=== PATIENT | female | born 1980 | race Caucasian/White ===

== ENCOUNTER 2019-09-15 04:08 | Emergency (ER) | payer OTHER, MEDICAID, SELFPAY ==
--- NOTE | ~2019-09-15 | XR_ITS ---
EXAMINATION: XR chest 2V 09/15/2019 05:17 INDICATION: Cough with fever PROCEDURE: 2 view chest COMPARISON: No prior studies for comparison. FINDINGS: The lungs are clear. The cardiomediastinal silhouette is within normal limits. There are no pleural effusions. There is no pneumothorax suspected. IMPRESSION: 1: NO ACUTE CARDIOPULMONARY DISEASE. Reviewed, dictated and finalized at location [facility]. [facility]
[2019-09-15 04:17] VITALS: BP 111/73; PULSE 121; RESP 12; TEMP 36; O2SAT 97
--- NOTE | 2019-09-15 04:37 | ED.ABDPAIN ---
HPI - Abdominal Pain General Chief Complaint: Urogenital-Female Stated Complaint: UTI Time Seen by Provider: 09/15/19 04:15 History of Present Illness HPI narrative: Dark urine and dysuria for the past 2 days. Associated with subjective fever and right flank pain. She reports that she has also had a cough and wheezing. Related Data Allergies Allergy/AdvReac Type Severity Reaction Status Date / Time vancomycin Allergy Intermediate Rash Verified 05/20/19 21:55 Review of Systems Review of Systems: All systems reviewed & are unremarkable except as noted in HPI and below Constitutional: Constitutional: Reports fatigue and Reports fever(s) Eyes: Eyes: Denies change in vision ENT: Denies sore throat Cardiovascular: Cardiovascular: Denies chest pain Respiratory: Respiratory: Reports wheezing Gastrointestinal: Gastrointestinal: Reports abdominal pain, Denies nausea and Denies vomiting Genitourinary: Genitourinary: Denies hematuria, Reports nocturia and Reports dysuria Musculoskeletal: Musculoskeletal: Reports back pain and Reports myalgias Neurologic: Denies weakness [facility] Social History Social History (Updated 09/15/19 @ 04:56 by Albaro Zacarias MD) Smoking status: Current every day smoker Exam Const: General: no acute distress and alert Nutritional Appearance: obese Orientation/consciousness: patient oriented x3 HENMT: Head: normal to inspection Eyes: Pupils: Equal, round and reactive pupils present Resp: Effort & Inspection: normal respiratory effort Auscultation: wheezes Cardio: Rate: regular rate Rhythm: regular rhythm GI: GI Palp: Yes Soft to palpation and No Tenderness to palpation present (GI) Back/Spine/Pelvis: Back: CVA tenderness (right) Neuro: General: patient oriented x3 and moves all extremities Speech: normal speech Extrem: General: normal to inspection Course Vital Signs Vital signs: Vital Signs Temperature 36.0 C L 09/15/19 04:17 Pulse Rate 121 H 09/15/19 04:17 Respiratory Rate 12 09/15/19 04:17 Blood Pressure 111/73 09/15/19 04:17 Pulse Oximetry 97 09/15/19 04:17 Temperature 36.0 C L 09/15/19 04:17 Pulse Rate 96 09/15/19 05:00 Respiratory Rate 20 09/15/19 05:00 Blood Pressure 111/73 09/15/19 04:17 Pulse Oximetry 97 09/15/19 04:17 MDM - Abdominal Pain Differential Diagnosis Differential diagnosis: Likely constipation and other (UTI, influenza) Medical Records Attestation: I reviewed the patient's medical records. Lab Data Attestation: I reviewed the patient's lab results. Result diagrams: 09/15/19 04:33 09/15/19 04:33 Labs: Lab Results 09/15/19 09/15/19 09/15/19 Range/Units 04:33 04:33 04:50 WBC 8.4 (4.5-10.0) K/mm3 RBC 4.26 (4.2-5.4) M/mm3 Hgb 12.9 (12.0-15.0) g/dL Hct 39.6 (37.0-47.0) % MCV 93.0 (80-100) fl MCH 30.3 (26-34) pg MCHC 32.6 (32-36) g/dl RDW 12.7 (11.5-14.5) % Plt Count 228 (150-375) k/mm3 MPV 10.1 (7.4-10.4) fl Immature Gran % (Auto) 0.4 (0-0.5) % Neut % (Auto) 59.3 (45.5-73.1) % Lymph % (Auto) 29.0 (18.3-44.2) % Taylor % (Auto) 6.7 (2.6-8.5) % Eos % (Auto) 4.0 (0-4.4) % Baso % (Auto) 0.6 (0.2-1.2) % Lymph # (Auto) 2.44 (0.9-3.2) K/mm3 Taylor # (Auto) 0.6 (0.1-0.6) K/mm3 Eos # (Auto) 0.3 (0-0.3) K/mm3 Baso # (Auto) 0.1 (0.0-0.1) K/mm3 Abs Immat Gran (auto) 0.03 (0.00-0.031) K/mm3 Absolute Neuts (auto) 5.0 (1.3-6.7) K/mm3 Absolute Nucleated RBC 0.0 (0.0-0.012) K/mm3 Nucleated RBC % 0.0 (0.0-0.2) % Sodium 135 L (137-145) mmol/L Potassium 3.0 L (3.4-5.0) mmol/L Chloride 100 (98-107) mmol/L Carbon Dioxide 24 (22-30) mmol/L BUN 8 (7-17) mg/dL Creatinine 0.90 (0.7-1.0) mg/dL Estim Creat Clear Calc Not Reportable Estimated GFR > 60 (59 - ) Glucose 137 H (65-105) mg/dL Calcium 8.6 (8.4-10.2) mg/dL Urine Color
[2019-09-15 04:50] VITALS: PULSE 98; RESP 20
[2019-09-15 04:51] LABS: Basophils Absolute Auto 0.1 K/mm3 (0.0-0.1); Basophils Percent Auto 0.6 % (0.2-1.2); Eosinophils Absolute Auto 0.3 K/mm3 (0-0.3); Hematocrit 39.6 % (37.0-47.0); Hemoglobin 12.9 g/dL (12.0-15.0); Immature Granulocyte Absolute 0.03 K/mm3 (0.00-0.031); Immature Granulocyte Percent A 0.4 % (0-0.5); Lymphocytes Absolute Auto 2.44 K/mm3 (0.9-3.2); Mean Corpuscular HGB Conc 32.6 g/dl (32-36); Mean Corpuscular Hemoglobin 30.3 pg (26-34); Mean Platelet Volume 10.1 fl (7.4-10.4); Monocytes Absolute Auto 0.6 K/mm3 (0.1-0.6); Monocytes Percent Auto 6.7 % (2.6-8.5); Neutrophils Percent Auto 59.3 % (45.5-73.1); Platelet Count Result 228 k/mm3 (150-375); Red Blood Count 4.26 M/mm3 (4.2-5.4); Red Cell Distribution Width 12.7 % (11.5-14.5); White Blood Count 8.4 K/mm3 (4.5-10.0)
[2019-09-15] MEDS: IPRATROPIUM BR 0.02% INH SOLN 0.5 MG/2.5 ML VIAL INHALATION (04:52)
[2019-09-15] MEDS: ALBUTEROL SULFATE NEB 2.5 MG/0.5 ML INH 5 MG INHALATION (04:52)
[2019-09-15 05:00] VITALS: PULSE 96; RESP 20
[2019-09-15 05:04] LABS: Blood Urea Nitrogen 8 mg/dL (7-17); Calcium 8.6 mg/dL (8.4-10.2); Carbon Dioxide 24 mmol/L (22-30); Chloride 100 mmol/L (98-107); Estimated Glomerular Filt Rate > 60; Glucose 137 mg/dL (65-105); Sodium 135 mmol/L (137-145)
[2019-09-15 05:12] LABS: Add Urine Microscopic? YES; Appearance Urine Cloudy (Clear); Bacteria Urine 2+ /hpf; Bilirubin Urine Negative (Negative); Blood Urine Negative (Negative); Color Urine Yellow (Yellow); Glucose Urine UA Negative (Negative); Ketones Urine Negative (Negative); Leukocyte Esterase Ur Negative LEU/UL (Negative); Mucus Urine Heavy /lpf; Nitrate Urine Negative (Negative); Protein Urine Negative (Negative); RBC Urine 0-2 /hpf (0-2); Squamous Epithelial Cell Urine Many /hpf (Few)
--- NOTE | 2019-09-15 05:43 | PC.NURSE ---
pt requesting pain and nausea medication. EDP notified no further orders at this time.
[2019-09-15] MEDS: ACETAMINOPHEN 500 MG TABLET 1000 MG PO (05:55)
[2019-09-15] MEDS: NITROFURANTOIN MONOHYD MACROCR 100 MG CAP PO (05:56)
[2019-09-15 06:08] VITALS: BP 122/78; PULSE 88; RESP 19; O2SAT 97
[2019-09-15] MEDS: PHENAZOPYRIDINE HCL 100 MG TABLET 200 MG PO (06:08)
== END 2019-09-15 06:08 | disposition home or self-care (01) ==
PROVIDERS: Emergency Provider Emergency Medicine; PCP Family Medicine
DX: N30.00 Acute cystitis without hematuria (principal); F17.290 Nicotine dependence, other tobacco product, uncomplicated
CPT/HCPCS: 36415; 71046; 80048; 81001; 81025; 85025; 87804; 94640; 99283; A9270

== ENCOUNTER 2019-11-25 20:58 | Emergency (ER) | payer OTHER, MEDICAID, SELFPAY ==
[2019-11-25 20:59] VITALS: BP 145/100; PULSE 105; RESP 20; TEMP 36.5; O2SAT 100
[2019-11-25 21:05] VITALS: BP 132/98; PULSE 78; RESP 18; TEMP 37.1; O2SAT 99
[2019-11-25] MEDS: KETOROLAC 10 MG TABLET PO (22:08)
[2019-11-25] MEDS: CEPHALEXIN 500 MG CAPSULE PO (22:08)
--- NOTE | 2019-11-25 22:08 | ED.WOUNDLAC ---
HPI - Wound/Laceration General Chief Complaint: Wound/Laceration Stated Complaint: ABCESS Time Seen by Provider: 11/25/19 21:55 Source: patient Mode of arrival: ambulatory History of Present Illness HPI narrative: 39 yo female who presents for evaluation of painful wounds to bilateral underarms. Patient reports she has had red bump in her right axilla x 1 week. She states it is painful and it is not getting better. She denies drainage. she has been applying hot compresses without relief. She reports taking motrin with minimal pain relief. Onset (ago): week(s) Place: home Related Data Allergies Allergy/AdvReac Type Severity Reaction Status Date / Time vancomycin Allergy Intermediate Rash Verified 11/25/19 21:10 Review of Systems Review of Systems: All systems reviewed & are unremarkable except as noted in HPI and below Constitutional: Constitutional: Denies chills and Denies fever(s) Integumentary/Breasts: Skin/Breast: Reports erythema PMFSH Past Medical History Medical History (Updated 11/26/19 @ 00:00 by Pauline Soriano) Anxiety Depression Hypothyroid Surgical History Surgical History (Updated 11/25/19 @ 22:09 by Aliya Chirinos MD) H/O: hysterectomy History of cholecystectomy Social History Social History (Updated 11/25/19 @ 22:10 by Aliya Chirinos MD) Smoking status: Current every day smoker Alcohol intake: never Exam Const: General: no acute distress and alert Orientation/consciousness: patient oriented x3 HENMT: Throat: uvula midline Other: missing teeth Eyes: EOM: EOMs intact bilaterally Resp: Effort & Inspection: normal respiratory effort Skin: Wounds: wounds noted right axilla size (1 cm) and without odor; no drainage Other: small 1 cm tender erythematous nodule, no drainage, then there is also 1 cm area to left axilla nodule no erthema Neuro: General: patient oriented x3 and moves all extremities Course Reevaluation(s) Reevaluation #1: Patient presents with 2 small wounds that dont have any fluctuance to suggest need for I and D. I have discussed with patient treatment with antibiotics. Date: 11/25/19 Time: 22:55 Vital Signs Vital signs: Vital Signs Temperature 97.7 F 11/25/19 20:59 Pulse Rate 105 H 11/25/19 20:59 Respiratory Rate 20 11/25/19 20:59 Blood Pressure 145/100 H 11/25/19 20:59 Pulse Oximetry 100 11/25/19 20:59 Temperature 98.3 F 11/25/19 23:01 Pulse Rate 80 11/25/19 23:01 Respiratory Rate 19 11/25/19 23:01 Blood Pressure 135/76 11/25/19 23:01 Pulse Oximetry 100 11/25/19 23:01 Discharge Plan Discharge Clinical Impression: Folliculitis Patient Disposition: Home, Self-Care Condition: Stable Instructions: Antibiotic Form, Folliculitis (ED) Additional Instructions: Continue performing your hot compresses. Take antibiotics as prescribed. Prescriptions: New sulfamethoxazole-trimethoprim [Bactrim DS] 800-160 mg tablet 1 tablet PO Q12H Qty: 14 RF: 0 No Action nitrofurantoin monohyd/m-cryst [Macrobid] 100 mg capsule 100 mg PO Q12H 5 Days Qty: 10 RF: 0 Follow-up/Referrals: Aide,Carmen Johnson MD [Primary Care Provider] - Discharge Date/Time: 11/25/19 23:02
[2019-11-25 23:01] VITALS: BP 135/76; PULSE 80; RESP 19; TEMP 36.8; O2SAT 100
== END 2019-11-25 23:02 | disposition home or self-care (01) ==
PROVIDERS: Emergency Provider General Practice; PCP Family Medicine
DX: L73.9 Follicular disorder, unspecified (principal); F17.200 Nicotine dependence, unspecified, uncomplicated
CPT/HCPCS: 99283; A9270

== ENCOUNTER 2020-01-20 14:02 | Outpatient (CLI) | payer OTHER, MEDICAID, SELFPAY ==
--- NOTE | ~2020-01-20 | MMUS_ITS ---
EXAMINATION: MM diagnostic isatu BI w purvi, US breast RT limited HISTORY: Probable right breast abnormality TECHNIQUE: Additional 3-D tomosynthesis images of the right breast were performed and synthetic 2-D i mages were generated. CAD analysis was submitted and interpreted. High resolution right breast ultras ound was performed. COMPARISON: None FINDINGS: MAMMOGRAPHIC FINDINGS: Breast composed of scattered areas of fibroglandular density. There are no suspicious masses, calcifi cations or architectural distortion in either breast to suggest malignancy. ULTRASOUND: Right breast ultrasound: At 10:00, 13 cm from the nipple, there is a 4 mm cyst. No suspicious masses are identified to sugges t malignancy. IMPRESSION: 1. No mammographic or sonographic evidence for malignancy. 2. Routine yearly screening mammogram and regular clinical breast examination are recommended. BI-RADS Category 2: Benign finding(s). Reviewed, dictated and finalized at location A. IMPRESSION: 1. No mammographic or sonographic evidence for malignancy. 2. Routine yearly screening mammogram and regular clinical breast examination a re recommended. BI-RADS Category 2: Benign finding(s).
== END 2020-01-20 14:03 | disposition home or self-care (01) ==
PROVIDERS: PCP Family Medicine; Visit Provider Family Medicine
DX: R59.0 Localized enlarged lymph nodes (principal)
CPT/HCPCS: 76642; 77062; 77066; G0279

== ENCOUNTER 2020-03-19 10:00 | Emergency (ER) | payer OTHER, MEDICAID, SELFPAY ==
--- NOTE | ~2020-03-19 | XR_ITS ---
EXAMINATION: XR chest 1V portable INDICATION: Cough and fever TECHNIQUE: Portable AP chest at 12:15 hours COMPARISON: 09/15/2019 FINDINGS: There are minimal airspace opacities of the lung bases. No pleural effusion or pneumothorax is identified. The heart size is normal. There is calcified atherosclerosis of the aorta. IMPRESSION: 1. Minimal airspace opacities of the lung bases, consistent with atelectasis versus pneumonia. 2. Calcified atherosclerosis of the aorta, somewhat atypical for patient age. Reviewed, dictated and finalized at location A. IMPRESSION: 1. Minimal airspace opacities of the lung bases, consistent with atelectasis ve rsus pneumonia. 2. Calcified atherosclerosis of the aorta, somewhat atypical for patient age.
--- NOTE | ~2020-03-19 | CT_ITS ---
EXAMINATION: CT abdomen pelvis wo con DATE: 03/19/2020 12:38 INDICATION: Back pain, bilateral flank pain, urinary tract symptoms (dysuria), fever. TECHNIQUE: Computed tomography (CT) of the abdomen and pelvis was performed without intravenous contr ast. Automated exposure control and iterative reconstruction technique were employed. Exam dose: 156 2.31 mGy-cm total exam DLP. COMPARISON: 05/20/2019 CT abdomen pelvis FINDINGS: The lung bases are clear of infiltrate or consolidation. Normal heart size. No pericardial or pleural effusion. Small sliding hiatal hernia. Status post cholecystectomy. No hepatic, splenic, pancreatic, and adrenal or renal space-occupying ma ss lesion is evident on this limited noncontrast examination. No bile duct or pancreatic duct dilatation. No urinary tract calculus or hydroureteronephrosis. Normal caliber of the abdominal aorta with mild atherosclerotic calcification. No abdominal aortic an eurysm. No intraperitoneal or retroperitoneal or pelvic mass lesion or adenopathy or ascites. Diffuse mild bladder wall thickening which may be secondary to underdistention or cystitis. No pericy stic inflammatory changes noted. History of partial hysterectomy. Contiguous 3.5 and 2.5 mm cystic lesions in the left adnexal area, l ikely of ovarian and possibly fallopian tubal origin. Surgical clips are noted in the right adnexal a oscar. Normal appendix. No bowel obstruction or intraperitoneal free air. Small fat-containing umbilical hernia. Left L5 pars interarticularis defect. No suspicious osteolytic or osteoblastic lesions are noted. IMPRESSION: Diffuse thickening of the urinary bladder wall; given the complaint of dysuria, cystitis should be considered 3.5 and 2.5 cm cystic lesions in the left adnexal area, likely due to cystic lesions of the ovary and possibly fallopian tube History of partial hysterectomy Status post cholecystectomy No urinary tract calculus or hydroureteronephrosis Reviewed, dictated and finalized at Location [facility]. Reviewed, dictated and finalized at location [facility]. IMPRESSION: Diffuse thickening of the urinary bladder wall; given the complain t of dysuria, cystitis should be considered 3.5 and 2.5 cm cystic lesions in the left adnexal area, likely due to cystic le sions of the ovary and possibly fallopian tube History of partial hysterectomy Status post cholecystectomy No urinary tract calculus or hydroureteronephrosis
[2020-03-19 10:08] VITALS: BP 106/45; PULSE 133; RESP 30; TEMP 37.9; O2SAT 100
--- NOTE | 2020-03-19 10:18 | ECG_ITS ---
Measurements Intervals [place] Rate: 128 P: 52 ME: 153 QRS: 51 QRSD: 73 T: 58 QT: 334 QTc: 488 Interpretive Statements SINUS TACHYCARDIA NONSPECIFIC ST & T-WAVE ABNORMALITY- ANTEROLAT/INF LEADS BASELINE ARTIFACT- I, II, III, AVR, AVL, AVF, V1-V6 ABNORMAL ECG Electronically Signed On 03-23-2020 8:40:57 CDT by David Mendoza D.O.
--- NOTE | 2020-03-19 10:37 | ED.FEMALEGU ---
HPI - Female Genitourinary General Chief complaint: Urogenital-Female Stated complaint: fever Time Seen by Provider: 03/19/20 10:14 Source: patient Mode of arrival: ambulatory Limitations: no limitations History of Present Illness HPI Narrative: Patient presents with chief complaint of fever that began this morning of 102 ?F. Patient states over the past 4 days she has had urinary frequency and urinary burning. Patient states that her symptoms feel as if she has urinary tract infection. Patient states that she has had URI type infections in the past and last one being 3 to 4 months ago. Patient states she saw her primary care but was unable to be seen yesterday. Patient states that she has been breathing very fast that she is anxious about her fever and not being able to get into her primary care office. Patient states that she has not taking any of her medications for her anxiety, depression and bipolar today. Patient denies cough, nausea, vomiting, diarrhea, headache, shortness of breath, chest pain. Related Data Allergies Allergy/AdvReac Type Severity Reaction Status Date / Time vancomycin Allergy Intermediate Rash Verified 11/25/19 21:10 Review of Systems Review of Systems: Narrative: CONSTITUTIONAL: Reports fever, chills, and sweats. EYES: Denies visual changes, redness, or discharge. ENT: Denies rhinorrhea, congestion, sore throat, or otalgia. CARDIOVASCULAR: Denies chest pain, palpitations, or edema. RESPIRATORY: Denies cough or dyspnea. GASTROINTESTINAL: Denies abdominal pain, nausea, vomiting, or diarrhea. GENITOURINARY: Reports dysuria and frequency denies hematuria. SKIN: Denies rash or itching. MUSCULOSKELETAL: Denies back pain, joint pain, or myalgia. NEUROLOGIC: Denies headache, numbness, dizziness, or weakness. PSYCHIATRIC: Reports anxiety denies depression. [facility] Past Medical History Medical History (Updated 03/19/20 @ 13:24 by Luc Harrison PA-C) Anxiety Depression Hypothyroid Surgical History Surgical History (Updated 11/25/19 @ 22:09 by Aliya Chirinos MD) H/O: hysterectomy History of cholecystectomy Social History Social History (Updated 11/25/19 @ 22:10 by Aliya Chirinos MD) Smoking status: Current every day smoker Alcohol intake: never Exam Narrative: Exam Narrative: GENERAL: Patient appears anxious, is diaphoretic and is breathing rapidly. Patient is obese. HEAD: Normocephalic, atraumatic. EYES: PERRLA and EOMI. ENT: Nares clear, no rhinorrhea or epistaxis. Mucous membranes moist. Oropharynx without tonsillar hypertrophy exudate or other lesions. Bilateral TMs pearly sharma nonbulging NECK: Supple. No adenopathy or masses. CHEST: Clear to auscultation. No respiratory distress. No wheezes rales or rhonchi. Patient able to speak in complete sentences without gasping for air. No CVA tenderness. HEART: Regular rate and rhythm. . ABDOMEN: Soft, obese, nontender, nondistended, normal active bowel sounds. EXTREMITIES: Normal range of motion. No edema. SKIN: Warm, dry, no rash. NEURO: No focal deficits. Alert and oriented x3. PSYCH: Normal mood and affect. Course Course Emergency Course: Encouraged the patient to slow her breathing as she states that her quick breathing is making her feel dizzy and sweaty. After calming down patient's respirations are normal as well as her oxygen saturation status. Patient denies any pain with breathing. Vital Signs Vital signs: Vital Signs Temperature 100.2 F H 03/19/20 10:08 Pulse Rate 133 H 03/19/20 10:08 Respiratory Rate 30 H 03/19/20 10:08 Blood Pressure 106/45 L 03/19/20 10:08 Pulse Oximetry 100 03/19/20 10:08 Temperature 100.2 F H 03/19/20 10:08 Pulse Rate 86 03/19/20 13:33 Respiratory Rate 18 03/19/20 13:33 Blood Pressure 131/86 03/19/20 13:33 Pulse Oximetry 100 03/19/20 13:33 MDM - Female Genitourinary MDM Narrative Medical decision making narrative: Patient urine does not show blood or inf
[2020-03-19] MEDS: SODIUM CHLORIDE 0.9% IV 1,000 ML 999 ML IV CONT (11:09)
[2020-03-19 11:10] VITALS: BP 132/88; PULSE 97; RESP 17; O2SAT 98
[2020-03-19 11:11] LABS: Basophils Absolute Auto 0.1 K/mm3 (0.0-0.1); Basophils Percent Auto 0.5 % (0.2-1.2); Eosinophils Absolute Auto 0.1 K/mm3 (0-0.3); Eosinophils Percent Auto 1.4 % (0-4.4); Hematocrit 44.3 % (37.0-47.0); Hemoglobin 14.9 g/dL (12.0-15.0); Immature Granulocyte Absolute 0.02 K/mm3 (0.00-0.031); Immature Granulocyte Percent A 0.2 % (0-0.5); Lymphocytes Absolute Auto 1.36 K/mm3 (0.9-3.2); Lymphocytes Percent Auto 14.6 % (18.3-44.2); Mean Corpuscular HGB Conc 33.6 g/dl (32-36); Mean Corpuscular Hemoglobin 32.3 pg (26-34); Mean Corpuscular Volume 96.1 fl (80-100); Mean Platelet Volume 9.6 fl (7.4-10.4); Monocytes Absolute Auto 0.4 K/mm3 (0.1-0.6); Monocytes Percent Auto 4.6 % (2.6-8.5); Neutrophils Absolute Auto 7.3 K/mm3 (1.3-6.7); Neutrophils Percent Auto 78.7 % (45.5-73.1); Platelet Count Result 299 k/mm3 (150-375); Red Blood Count 4.61 M/mm3 (4.2-5.4); Red Cell Distribution Width 12.7 % (11.5-14.5); White Blood Count 9.3 K/mm3 (4.5-10.0)
[2020-03-19 11:18] LABS: Alanine Aminotransferase 29 U/L (4-35); Albumin Level 4.4 g/dL (3.5-5.1); Alkaline Phosphatase 115 U/L (38-126); Aspartate Amino Transferase 31 U/L (14-36); Bilirubin,Total 0.7 mg/dL (0.2-1.3); Blood Urea Nitrogen 8 mg/dL (7-17); Calcium 9.2 mg/dL (8.4-10.2); Carbon Dioxide 26 mmol/L (22-30); Chloride 102 mmol/L (98-107); Estimated CRCL calculation 105 ml/min; Estimated Glomerular Filt Rate > 60; Glucose 123 mg/dL (65-105); Sodium 136 mmol/L (137-145)
[2020-03-19 11:22] LABS: Add Urine Microscopic? NO; Appearance Urine Clear (Clear); Bilirubin Urine Negative (Negative); Blood Urine Negative (Negative); Color Urine Yellow (Yellow); Glucose Urine UA Negative (Negative); Ketones Urine Negative (Negative); Leukocyte Esterase Ur Negative LEU/UL (Negative); Mucus Urine Few /lpf; Nitrate Urine Negative (Negative); Protein Urine Negative (Negative); RBC Urine 0-2 /hpf (0-2); Specific Grav Ur 1.019 (1.001-1.035); Squamous Epithelial Cell Urine Many /hpf (Few); Urobilinogen Urine Negative mg/dL (<2.0); WBC Urine 0-3 /hpf
[2020-03-19] MEDS: KETOROLAC 15 MG/ML VIAL (*BKC) IV PUSH (11:34)
[2020-03-19 11:58] VITALS: PULSE 83; RESP 16; O2SAT 98
[2020-03-19 12:51] VITALS: BP 109/83; PULSE 91; RESP 14; O2SAT 98
[2020-03-19 13:33] VITALS: BP 131/86; PULSE 86; RESP 18; O2SAT 100
== END 2020-03-19 13:34 | disposition home or self-care (01) ==
PROVIDERS: Physician Assistant; Emergency Provider Emergency Medicine; PCP Family Medicine
DX: N30.00 Acute cystitis without hematuria (principal); N83.202 Unspecified ovarian cyst, left side; F41.9 Anxiety disorder, unspecified; F31.9 Bipolar disorder, unspecified; E03.9 Hypothyroidism, unspecified; F17.200 Nicotine dependence, unspecified, uncomplicated; I70.0 Atherosclerosis of aorta; R91.8 Other nonspecific abnormal finding of lung field
CPT/HCPCS: 36415; 71045; 74176; 80053; 81003; 85025; 87040; 87077; 87186; 93005; 96374; 96375; 99284; J0131; J1885; J7030

== ENCOUNTER 2020-05-05 08:47 | Outpatient (CLI) | payer OTHER, MEDICAID, SELFPAY ==
--- NOTE | 2020-05-05 11:00 | NEURO_ITS ---
Patient Number: [id number] Impression: # Complains of numbness of 4th and 5th fingers bilaterally with pain in elbows. 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 # No Carpal Tunnel Syndrome. # Normal needle/EMG exam. Nerve Conduction Studies Anti Sensory Summary Table Stim Site NR Peak (ms) P-T Amp (?V) Site1 Site2 Delta-P (ms) Dist (cm) Carlos (m/s) Left Median Anti Sensory (2-3nd Digit) Wrist 3.0 82.6 Wrist 2-3nd Digit 3.0 14.0 47 Wrist 3.0 68.7 Wrist 2-3nd Digit 3.0 14.0 47 Right Median Anti Sensory (2-3nd Digit) Wrist 3.1 21.2 Wrist 2-3nd Digit 3.1 14.0 45 Wrist 3.2 53.9 Wrist 2-3nd Digit 3.1 14.0 45 Left Radial Anti Sensory (Base 1st Digit) Wrist 2.0 18.5 Wrist Base 1st Digit 2.0 0.0 Right Radial Anti Sensory (Base 1st Digit) Wrist 2.3 18.9 Wrist Base 1st Digit 2.3 0.0 Left Ulnar Anti Sensory (5th Digit) Wrist 2.4 70.2 Wrist 5th Digit 2.4 14.0 58 Right Ulnar Anti Sensory (5th Digit) Wrist 2.4 66.0 Wrist 5th Digit 2.4 14.0 58 Motor Summary Table Stim Site NR Onset (ms) O-P Amp (mV) Site1 Site2 Delta-0 (ms) Dist (cm) Carlos (m/s) Left Median Motor (Abd Poll Brev) Wrist 3.0 4.2 Elbow Wrist 5.3 31.0 58 Elbow 8.3 1.7 Right Median Motor (Abd Poll Brev) Wrist 3.3 4.0 Elbow Wrist 5.2 31.0 60 Elbow 8.5 3.1 Left Ulnar Motor (Abd Dig Minimi) Wrist 2.7 8.6 A Elbow Wrist 5.7 30.0 53 A Elbow 8.4 6.8 B Elbow Wrist 4.4 26.0 59 B Elbow 7.1 4.2 Right Ulnar Motor (Abd Dig Minimi) Wrist 2.3 6.5 A Elbow Wrist 7.2 31.0 43 A Elbow 9.5 4.2 B Elbow Wrist 3.8 22.0 58 B Elbow 6.1 2.3 F Wave Studies NR F-Lat (ms) L-R F-Lat (ms) Left Median (Mrkrs) (Abd Poll Brev) 27.87 0.49 Right Median (Mrkrs) (Abd Poll Brev) 28.35 0.49 Left Ulnar (Mrkrs) (Abd Dig Min) 29.34 0.53 Right Ulnar (Mrkrs) (Abd Dig Min) 29.87 0.53 EMG Side Muscle Nerve Root Ins Act Fibs Amp Dur Recrt Comment Right 1stDorInt Ulnar C8-T1 Nml Nml Nml Nml Nml Right Ext Indicis Radial (Post Int) C7-8 Nml Nml Nml Nml Nml Right Ext Digitorum Radial (Post Int) C7-8 Nml Nml Nml Nml Nml Right BrachioRad Radial C5-6 Nml Nml Nml Nml Nml Right PronatorTeres Median C6-7 Nml Nml Nml Nml Nml Right Abd Poll Brev Median C8-T1 Nml Nml Nml Nml Nml Left 1stDorInt Ulnar C8-T1 Nml Nml Nml Nml Nml Left Ext Indicis Radial (Post Int) C7-8 Nml Nml Nml Nml Nml Left Ext Digitorum Radial (Post Int) C7-8 Nml Nml Nml Nml Nml Left BrachioRad Radial C5-6 Nml Nml Nml Nml Nml Left PronatorTeres Median C6-7 Nml Nml Nml Nml Nml Left Abd Poll Brev Median C8-T1 Nml Nml Nml Nml Nml Right ABD Dig Min Ulnar C8-T1 Nml Nml Nml Nml Nml Left ABD Dig Min Ulnar C8-T1 Nml Nml Nml Nml Nml MTDD
== END 2020-05-05 08:48 | disposition home or self-care (01) ==
LOC: ANHNEURO 08:49
PROVIDERS: PCP Family Medicine; Visit Provider Family Medicine
DX: G56.23 Lesion of ulnar nerve, bilateral upper limbs (principal)
CPT/HCPCS: 95886; 95910; 95911

== ENCOUNTER 2020-06-18 02:25 | Emergency (ER) | payer OTHER, MEDICAID, SELFPAY ==
[2020-06-18 02:30] VITALS: BP 129/83; PULSE 88; RESP 18; TEMP 36.4; O2SAT 100
--- NOTE | 2020-06-18 02:44 | ED.FEMALEGU ---
HPI - Female Genitourinary General Chief complaint: Urogenital-Female Stated complaint: pain with urination/back pain Time Seen by Provider: 06/18/20 02:42 Source: patient Mode of arrival: ambulatory Limitations: no limitations History of Present Illness HPI Narrative: Patient is a 40-year-old female complaining of dysuria accompanied by low back pain that started approximately 4 days ago. Patient denies any abdominal pain, nausea vomiting, fever or chills. Patient denies hematuria. Severity scale (1-10): 6 Quality of pain: cramping Vaginal discharge: none Vaginal bleeding: none Exacerbating factors: urination Relieving factors: none Associated symptoms: denies other symptoms Treatment prior to arrival: none Related Data Allergies Allergy/AdvReac Type Severity Reaction Status Date / Time vancomycin Allergy Intermediate Rash Verified 06/18/20 02:39 Latex, Natural Rubber Allergy Hives Verified 06/18/20 02:39 Review of Systems Review of Systems: All systems reviewed & are unremarkable except as noted in HPI and below Constitutional: Constitutional: Denies body ache(s), Denies chills, Denies excessive sweating, Denies fatigue, Denies fever(s), Denies headache(s), Denies lethargy, Denies malaise, Denies weakness and Denies weight loss Eyes: Eyes: Denies blurry vision, Denies change in vision and Denies loss of vision ENT: Denies dizziness, Denies ear discharge, Denies headache(s), Denies lip swelling, Denies epistaxis, Denies nasal congestion, Denies neck pain, Denies throat swelling and Denies tongue swelling Cardiovascular: Cardiovascular: Denies chest pain, Denies chest pain at rest, Denies chest pain with activity, Denies diaphoresis, Denies rapid heart rate, Denies edema, Denies irregular heart rhythm, Denies lightheadedness, Denies palpitations, Denies dyspnea and Denies dyspnea on exertion Respiratory: Respiratory: Denies chest congestion, Denies cough, Denies hemoptysis, Denies dyspnea and Denies dyspnea on exertion Gastrointestinal: Gastrointestinal: Denies abdominal pain, Denies melena, Denies hematochezia, Denies diarrhea, Denies nausea, Denies vomiting and Denies hematemesis Musculoskeletal: Musculoskeletal: Denies abnormal gait, Denies deformity, Denies joint swelling, Denies limited range of motion, Denies neck pain and Denies numbness Neurologic: Denies Abnormal speech present, Denies abnormal gait, Denies confusion, Denies dizziness, Denies headache(s), Denies focal weakness, Denies loss of vision, Denies numbness, Denies Other visual disturbances, Denies Sensory deficit (Neuro) and Denies weakness Psychiatric: Psychiatric: Denies confusion, Denies depression, Denies auditory hallucinations, Denies homicidal ideation and Denies suicidal ideation Endocrine: Endocrine: Denies cold intolerance, Denies excessive sweating, Denies fatigue, Denies heat intolerance and Denies palpitations Hematologic/Lymphatic: Hematologic/Lymphatic: Denies easy bleeding and Denies easy bruising Allergic/Immunologic: Allergic/Immunologic: Denies lip swelling, Denies throat swelling and Denies tongue swelling PMFSH Past Medical History Medical History (Updated 06/18/20 @ 03:19 by Dereje Mcguire MD) Anxiety Depression Hypothyroid Surgical History Surgical History (Updated 11/25/19 @ 22:09 by Aliya Chirinos MD) H/O: hysterectomy History of cholecystectomy Social History Social History (Updated 11/25/19 @ 22:10 by Aliya Chirinos MD) Smoking status: Current every day smoker Alcohol intake: never Exam Const: General: cooperative, healthy appearing, comfortable, no acute distress, well developed, alert and awake; No confusion Orientation/consciousness: oriented to person, oriented to place, oriented to time, patient oriented x3 and No confusion Limitations: no limitations HENMT: Head: normal to inspection, normocephalic and atraumatic Ears: hearing grossly normal bilaterally, TM normal on the right and TM samara
[2020-06-18 02:59] LABS: Add Urine Microscopic? YES; Appearance Urine Turbid (Clear); Bacteria Urine 4+ /hpf; Bilirubin Urine Negative (Negative); Blood Urine 1+ (Negative); Color Urine Yellow (Yellow); Glucose Urine UA Negative (Negative); Ketones Urine Negative (Negative); Leukocyte Esterase Ur 3+ LEU/UL (Negative); Mucus Urine Rare /lpf; Nitrate Urine Negative (Negative); Protein Urine 2+ mg/dL (Negative); RBC Urine 21-50 /hpf (0-2); Specific Grav Ur 1.024 (1.001-1.035); Squamous Epithelial Cell Urine Moderate /hpf (Few); Urobilinogen Urine Negative mg/dL (<2.0); WBC Urine >75 /hpf
[2020-06-18] MEDS: IBUPROFEN 400 MG TABLET 800 MG PO (03:30)
[2020-06-18 03:35] VITALS: BP 138/74; PULSE 70; RESP 19; O2SAT 98
== END 2020-06-18 03:35 | disposition home or self-care (01) ==
PROVIDERS: Emergency Provider Emergency Medicine; PCP Family Medicine
DX: N39.0 Urinary tract infection, site not specified (principal); E03.9 Hypothyroidism, unspecified; F17.200 Nicotine dependence, unspecified, uncomplicated
CPT/HCPCS: 81001; 81025; 87077; 87086; 87088; 87186; 99283; A9270

== ENCOUNTER 2020-09-14 04:11 | Emergency (ER) | payer OTHER, MEDICAID, SELFPAY ==
--- NOTE | ~2020-09-14 | CT_ITS ---
EXAMINATION: CT abdomen pelvis w con DATE: 09/14/2020 06:46 INDICATION: Epigastric abdominal pain TECHNIQUE: Computed tomography (CT) of the abdomen and pelvis was performed with 100 cc Omnipaque 350 intravenous contrast. Automated exposure control and iterative reconstruction technique were employe d. Exam dose: 1588.81 mGy-cm total exam DLP. COMPARISON: 03/19/[address] abdomen pelvis FINDINGS: Minimal bilateral lower lobe dependent atelectasis. Heart size is normal. No pericardial or pleural effusion. Status post cholecystectomy. No bile duct dilatation. No hepatic, splenic, pancreatic, and adrenal sp jaswinder-occupying mass lesion. Probable 7.5 mm lower pole left renal cyst. The kidneys are otherwise unremarkable. No urinary tract calculus or hydroureteronephrosis. There is moderate thickening of the urinary bladder wall, not sign ificantly changed since 03/19/2020. Normal caliber of the abdominal aorta. No intraperitoneal or retroperitoneal or pelvic mass lesion or adenopathy or ascites. Normal appendix. No bowel obstruction, bowel wall thickening, pneumatosis or intraperitoneal free air . Small fat-containing umbilical hernia. Left L5 pars intra-articular is defect. No suspicious osteolytic or osteoblastic lesions are noted. IMPRESSION: Probable 7 mm lower pole left renal cyst Status post cholecystectomy Reviewed, dictated and finalized at [facility]. Reviewed, dictated and finalized at [facility]. [facility]
[2020-09-14 04:11] VITALS: BP 119/94; PULSE 99; RESP 16; TEMP 36.1; O2SAT 100
[2020-09-14 04:40] LABS: Basophils Absolute Auto 0.1 K/mm3 (0.0-0.1); Basophils Percent Auto 0.8 % (0.2-1.2); Eosinophils Absolute Auto 0.4 K/mm3 (0-0.3); Eosinophils Percent Auto 4.1 % (0-4.4); Hematocrit 41.9 % (37.0-47.0); Hemoglobin 13.9 g/dL (12.0-15.0); Immature Granulocyte Absolute 0.03 K/mm3 (0.00-0.031); Immature Granulocyte Percent A 0.3 % (0-0.5); Lymphocytes Absolute Auto 3.83 K/mm3 (0.9-3.2); Lymphocytes Percent Auto 38.1 % (18.3-44.2); Mean Corpuscular HGB Conc 33.2 g/dl (32-36); Mean Corpuscular Hemoglobin 31.9 pg (26-34); Mean Corpuscular Volume 96.1 fl (80-100); Mean Platelet Volume 9.4 fl (7.4-10.4); Monocytes Absolute Auto 0.6 K/mm3 (0.1-0.6); Neutrophils Absolute Auto 5.1 K/mm3 (1.3-6.7); Neutrophils Percent Auto 50.7 % (45.5-73.1); Platelet Count Result 290 k/mm3 (150-375); Red Blood Count 4.36 M/mm3 (4.2-5.4); Red Cell Distribution Width 12.3 % (11.5-14.5); White Blood Count 10.1 K/mm3 (4.5-10.0)
--- NOTE | 2020-09-14 04:45 | ED.ABDPAIN ---
HPI - Abdominal Pain General Chief Complaint: Abdominal Pain Stated Complaint: Epigastric pain N/V x3d Time Seen by Provider: 09/14/20 04:28 Source: patient Mode of arrival: ambulatory Limitations: no limitations History of Present Illness HPI narrative: A 40-year-old female comes into the emergency department tonight with complaints of epigastric abdominal pain. Patient does also endorse nausea with some vomiting. She states that she has not had a abnormal bowel movement. Patient states that it feels like there is a rock right in the middle of her stomach. She stated that this started 3 days ago and has been getting progressively worse. She does note that she has a history of acid reflux and multiple abdominal surgeries including a cholecystectomy. Patient denies any fever chills or changes in urinary habits. Related Data Allergies Allergy/AdvReac Type Severity Reaction Status Date / Time vancomycin Allergy Intermediate Rash Verified 09/14/20 04:26 Latex, Natural Rubber Allergy Hives Verified 09/14/20 04:26 Review of Systems Review of Systems: Narrative: CONSTITUTIONAL: Denies fever, chills, or sweats. EYES: Denies visual changes, redness, or discharge. ENT: Denies rhinorrhea, congestion, sore throat, or otalgia. CARDIOVASCULAR: Denies chest pain, palpitations, or edema. RESPIRATORY: Denies cough or dyspnea. GASTROINTESTINAL: Endorses abdominal pain, nausea, vomiting. GENITOURINARY: Denies dysuria or hematuria. SKIN: Denies rash or itching. MUSCULOSKELETAL: Denies back pain, joint pain, or myalgia. NEUROLOGIC: Denies headache, numbness, dizziness, or weakness. PSYCHIATRIC: Denies anxiety or depression. [facility] Past Medical History Medical History Anxiety Depression Hypothyroid Surgical History Surgical History H/O: hysterectomy History of cholecystectomy Social History Social History Smoking status: Current every day smoker Alcohol intake: never Exam Narrative: Exam Narrative: GENERAL: Well-appearing, well-nourished, and in no acute distress. HEAD: Normocephalic, atraumatic. EYES: PERRLA and EOMI. ENT: Nares clear, no rhinorrhea or epistaxis. Mucous membranes moist. Oropharynx without tonsillar hypertrophy exudate or other lesions. Bilateral TMs pearly sharma nonbulging NECK: Supple. No adenopathy or masses. No carotid bruits or JVD CHEST: Clear to auscultation. No respiratory distress. No wheezes rales or rhonchi HEART: Regular rate and rhythm. No murmur heard. Normal peripheral pulses. ABDOMEN: Soft, epigastric tenderness to palpation, nondistended, normal active bowel sounds. EXTREMITIES: Normal range of motion. No edema. SKIN: Warm, dry, no rash. NEURO: No focal deficits. Alert and oriented x3. PSYCH: Normal mood and affect. Course Reevaluation(s) Reevaluation #1: After treatment with various medications patient did have a slight improvement in her condition. Based on where her pain is in the description I do feel that she is likely suffering from acute gastritis, possible peptic ulcer disease. This was explained to patient has a treatment plan was. We will plan to give patient symptomatic medications upon discharge and recommend she follow-up with her PCP and internal controls specialist. Time: 07:11 Vital Signs Vital signs: Vital Signs Temperature 36.1 C L 09/14/20 04:11 Pulse Rate 99 09/14/20 04:11 Respiratory Rate 16 09/14/20 04:11 Blood Pressure 119/94 H 09/14/20 04:11 Pulse Oximetry 100 09/14/20 04:11 Temperature 36.1 C L 09/14/20 04:11 Pulse Rate 71 09/14/20 06:57 Respiratory Rate 18 09/14/20 06:57 Blood Pressure 133/92 H 09/14/20 06:57 Pulse Oximetry 100 09/14/20 06:57 MDM - Abdominal Pain Medical Records Attestation: I reviewed the patient's medical records. Lab Data Attestation: I reviewed the patie
[2020-09-14] MEDS: ONDANSETRON INJ 4 MG/2 ML VIAL IV PUSH (04:48)
[2020-09-14] MEDS: KETOROLAC 15 MG/ML VIAL (*BKC) IV PUSH (04:49)
[2020-09-14] MEDS: DICYCLOMINE HCL INJ 20 MG/2 ML VIAL IM (04:50)
[2020-09-14] MEDS: BELLADONNA ALK/PHENOB ELIX 10 ML, MAG HYDROX/ALUMINUM HYD/SIMETH 30 ML, LIDOCAINE HCL 2... PO (04:51)
[2020-09-14 04:52] LABS: Alanine Aminotransferase 23 U/L (4-35); Albumin Level 3.9 g/dL (3.5-5.1); Alkaline Phosphatase 107 U/L (38-126); Anion Gap 5 mmol/L (8-16); Aspartate Amino Transferase 24 U/L (14-36); Bilirubin,Total 0.3 mg/dL (0.2-1.3); Blood Urea Nitrogen 8 mg/dL (7-17); Calcium 8.7 mg/dL (8.4-10.2); Carbon Dioxide 28 mmol/L (22-30); Chloride 106 mmol/L (98-107); Estimated CRCL calculation 106 ml/min; Estimated Glomerular Filt Rate > 60; Glucose 102 mg/dL (65-105); Lipase 106 U/L (23-300); Potassium 3.8 mmol/L (3.4-5.0); Sodium 139 mmol/L (137-145)
[2020-09-14 05:07] LABS: Add Urine Microscopic? NO; Appearance Urine Clear (Clear); Bilirubin Urine Negative (Negative); Blood Urine Negative (Negative); Color Urine Yellow (Yellow); Glucose Urine UA Negative (Negative); Ketones Urine Negative (Negative); Leukocyte Esterase Ur Negative LEU/UL (Negative); Nitrate Urine Negative (Negative); Protein Urine Negative (Negative); Specific Grav Ur 1.021 (1.001-1.035); Urobilinogen Urine Negative mg/dL (<2.0)
[2020-09-14] MEDS: MORPHINE SULFATE (*CRX) 4 MG/ML INJ IV PUSH (06:22)
[2020-09-14 06:57] VITALS: BP 133/92; PULSE 71; RESP 18; O2SAT 100
[2020-09-14 07:22] VITALS: BP 125/92; PULSE 71; RESP 17; O2SAT 100
== END 2020-09-14 07:24 | disposition home or self-care (01) ==
PROVIDERS: Emergency Provider Emergency Medicine; PCP Family Medicine
DX: K29.00 Acute gastritis without bleeding (principal); E03.9 Hypothyroidism, unspecified; K21.9 Gastro-esophageal reflux disease without esophagitis; F17.200 Nicotine dependence, unspecified, uncomplicated
CPT/HCPCS: 36415; 74177; 80053; 81003; 81025; 83690; 85025; 96372; 96374; 96375; 99284; A9270; J0500; J1885; J2270; J2405; Q9967

== ENCOUNTER 2020-11-22 02:03 | Emergency (ER) | payer OTHER, MEDICAID, SELFPAY ==
--- NOTE | ~2020-11-22 | XR_ITS ---
EXAMINATION: XR chest 1V portable EXAM DATE: 11/22/2020 02:42 INDICATION: Chest tightness. TECHNIQUE: Portable AP frontal chest x-ray was obtained. Comparison is made to prior examination from 03/19/2020. FINDINGS: The lungs are clear. There are no pleural effusions. The cardiomediastinal silhouette is within normal limits. There is no pneumothorax suspected. The bones and soft tissues are unremarkab le. IMPRESSION: No acute cardiopulmonary findings. Reviewed, dictated and finalized at [facility].
--- NOTE | ~2020-11-22 | CT_ITS ---
EXAMINATION: CT abdomen pelvis w con EXAM DATE: 11/22/2020 04:03 INDICATION: Abdominal pain. TECHNIQUE: Spiral CT of the abdomen and pelvis was performed following intravenous injection of 100 m L Omnipaque 350. Axial, coronal and sagittal images of the abdomen and pelvis were reviewed. The do se-length product (DLP) for this examination was 1323.26 mGy-cm. The exposure was tailored according to patient size (auto mA exposure control), and iterative reconstruction (ASIR) was used as addition al dose reduction technique. Comparison is made to prior examination from 09/14/2020. FINDINGS: The liver, spleen, adrenal glands and pancreas are unremarkable. There are cholecystectomy clips. Portal and splenic veins are patent. Kidneys enhance symmetrically. There is no hydronephr osis. Small uterus versus partial hysterectomy. The bladder is unremarkable. There is no retroper itoneal or pelvic lymphadenopathy. The appendix is normal. The stomach and small bowel are unremarkable. There is expected amount of c olonic stool. No free intraperitoneal gas. The heart is normal in size. There are no pericardial or pleural effusions. The lung bases are unremarkable. Chronic left L5 spondylolysis. IMPRESSION: 1. No acute intra-abdominal findings. Reviewed, dictated and finalized at [facility].
[2020-11-22 02:09] VITALS: BP 138/92; PULSE 110; RESP 16; TEMP 35.9; O2SAT 99
--- NOTE | 2020-11-22 02:13 | ED.GENADULT ---
HPI - General Adult General Chief complaint: Anxiety Stated complaint: chest tightness Time Seen by Provider: 11/22/20 02:06 Source: RN notes reviewed History of Present Illness HPI narrative: Patient presents emergency department from home for chest tightness. Patient states she was going down the leg her sleep tonight when she felt tightness in her lower chest and that her heart was racing. Patient states symptoms been ongoing for the past hour and a half. She states that earlier today she was having frequent urination and was concerned she had a urinary tract infection she has a history of frequent urinary tract infections patient denies having fevers or chills shortness of breath reports diffuse abdominal pain denies any other symptoms at this Related Data Allergies Allergy/AdvReac Type Severity Reaction Status Date / Time vancomycin Allergy Intermediate Rash Verified 09/14/20 04:26 Latex, Natural Rubber Allergy Hives Verified 09/14/20 04:26 Review of Systems Review of Systems: Narrative: Gen.: Denies fevers or chills ENT: Denies congestion Respiratory: Denies shortness of breath or cough CV: See HPI GI: Reports abdominal pain nausea denies diarrhea denies burning, urgency, frequency or hematuria Musculoskeletal: Denies back pain or muscle pain Neuro: Denies numbness, tingling, weakness or focal weakness Skin: Denies rash Except as documented, all other systems reviewed and negative PMFSH Past Medical History Medical History Anxiety Depression Hypothyroid Surgical History Surgical History H/O: hysterectomy History of cholecystectomy Social History Social History Smoking status: Current every day smoker Alcohol intake: never Exam Narrative: Exam Narrative: APPEARANCE: No acute distress, nontoxic, resting in bed EYES: EOMI HEENT: Normocephalic, atraumatic, OMM RESPIRATORY: No respiratory distress Clear to auscultation bilaterally with no rhonchi wheezing or rales. CARDIOVASCULAR: Regular rate and rhythm without murmurs rubs or gallops. Chest: Turn palpation in the lower midsternal chest wall ABDOMINAL: Soft, nontender, tender palpation epigastric left upper quadrant right upper quadrant no rebound or guarding MUSCULOSKELETAl: Moves all extremities. No clubbing, cyanosis or edema. NEURO: Awake and alert. Following commands, speech normal, no focal deficits SKIN:: Warm, dry. No rashes lesions or abrasions PSYCHIATRIC: Normal affect/mood, Course Course Emergency Course: Patient states she is feeling better following medications patient states she has been more physically active lately Discussed with patient results of workup and diagnosis. Discussed need for follow-up with primary care, proper use of medication, and reasons to return to the emergency department. Patient understands and agrees to current treatment plan Vital Signs Vital signs: Vital Signs Temperature 96.7 F L 11/22/20 02:09 Pulse Rate 110 H 11/22/20 02:09 Respiratory Rate 16 11/22/20 02:09 Blood Pressure 138/92 H 11/22/20 02:09 Pulse Oximetry 99 11/22/20 02:09 Temperature 96.7 F L 11/22/20 02:09 Pulse Rate 110 H 11/22/20 02:09 Respiratory Rate 16 11/22/20 02:09 Blood Pressure 138/92 H 11/22/20 02:09 Pulse Oximetry 99 11/22/20 02:09 Medical Decision Making MDM Narrative Medical decision making narrative: Patient's EKGs and labs are without significant high risk changes. Cardiac risk factors reviewed. Patient is felt likely low risk for ACS and reasonable for further risk stratification testing as an outpatient. Pain was not sudden or maximal in onset without tearing or ripping quality. No other signs of symptoms suggest aortic dissection. A low-risk Wells criteria is noted, PE is felt to be unlikely. No pneumonia seen on evaluation today. Patient i
[2020-11-22 02:36] LABS: Basophils Absolute Auto 0.1 K/mm3 (0.0-0.1); Basophils Percent Auto 0.5 % (0.2-1.2); Eosinophils Absolute Auto 0.3 K/mm3 (0-0.3); Eosinophils Percent Auto 2.7 % (0-4.4); Hematocrit 41.2 % (37.0-47.0); Hemoglobin 13.7 g/dL (12.0-15.0); Immature Granulocyte Absolute 0.04 K/mm3 (0.00-0.031); Immature Granulocyte Percent A 0.3 % (0-0.5); Lymphocytes Absolute Auto 4.12 K/mm3 (0.9-3.2); Lymphocytes Percent Auto 34.1 % (18.3-44.2); Mean Corpuscular HGB Conc 33.3 g/dl (32-36); Mean Corpuscular Hemoglobin 31.6 pg (26-34); Mean Corpuscular Volume 94.9 fl (80-100); Mean Platelet Volume 9.3 fl (7.4-10.4); Monocytes Absolute Auto 0.7 K/mm3 (0.1-0.6); Neutrophils Absolute Auto 6.8 K/mm3 (1.3-6.7); Neutrophils Percent Auto 56.4 % (45.5-73.1); Platelet Count Result 275 k/mm3 (150-375); Red Blood Count 4.34 M/mm3 (4.2-5.4); Red Cell Distribution Width 12.6 % (11.5-14.5); White Blood Count 12.1 K/mm3 (4.5-10.0)
[2020-11-22] MEDS: SODIUM CHLORIDE 0.9% IV 1,000 ML 999 ML IV CONT (02:39)
[2020-11-22 02:42] LABS: INR 0.9; Partial Thromboplastin Time 26.6 SECONDS (22.3-36.8); Prothrombin Time 12.8 Seconds (11.1-14.7)
[2020-11-22 02:43] LABS: Add Urine Microscopic? YES; Appearance Urine Cloudy (Clear); Bacteria Urine Trace /hpf; Bilirubin Urine 1+ (Negative); Blood Urine Negative (Negative); Color Urine Amber (Yellow); Glucose Urine UA Negative (Negative); Ketones Urine Negative (Negative); Leukocyte Esterase Ur Negative LEU/UL (Negative); Mucus Urine Moderate /lpf; Nitrate Urine Negative (Negative); Protein Urine 1+ mg/dL (Negative); RBC Urine 0-2 /hpf (0-2); Squamous Epithelial Cell Urine Moderate /hpf (Few); WBC Urine 0-3 /hpf
[2020-11-22 02:45] LABS: Specific Grav Ur 1.031 (1.001-1.035)
[2020-11-22 02:46] LABS: Alanine Aminotransferase 35 U/L (4-35); Albumin Level 4.1 g/dL (3.5-5.1); Alkaline Phosphatase 105 U/L (38-126); Anion Gap 6 mmol/L (8-16); Aspartate Amino Transferase 29 U/L (14-36); Bilirubin,Total 0.3 mg/dL (0.2-1.3); Blood Urea Nitrogen 12 mg/dL (7-17); Calcium 8.6 mg/dL (8.4-10.2); Carbon Dioxide 29 mmol/L (22-30); Chloride 105 mmol/L (98-107); Estimated CRCL calculation 96 ml/min; Estimated Glomerular Filt Rate > 60; Glucose 114 mg/dL (65-105); Lactic Acid Reflex 1.4 mmol/L (0.7-2.1); Potassium 3.6 mmol/L (3.4-5.0); Sodium 140 mmol/L (137-145)
[2020-11-22 03:04] LABS: D Dimer 0.35 ug/mL (<0.48)
[2020-11-22 03:06] LABS: Troponin I < 0.012 ng/mL (0.000-0.034)
[2020-11-22 03:28] LABS: Pregnancy On Board Control Positive; Urine Pregnancy Test Negative
[2020-11-22] MEDS: MORPHINE SULFATE (*CRX) 4 MG/ML INJ IV PUSH (03:37)
[2020-11-22 05:42] LABS: Troponin I < 0.012 ng/mL (0.000-0.034)
[2020-11-22 05:59] LABS: Lipase 121 U/L (23-300)
[2020-11-22 07:20] VITALS: BP 102/71; PULSE 82; RESP 17; O2SAT 99
--- NOTE | 2020-11-22 15:55 | ECG_ITS ---
Measurements Intervals [place] Rate: 118 P: 40 IL: 140 QRS: 22 QRSD: 80 T: 18 QT: 340 QTc: 477 Interpretive Statements SINUS TACHYCARDIA POSSIBLE LEFT ATRIAL ENLARGEMENT INCOMPLETE RIGHT BUNDLE BRANCH BLOCK BORDERLINE ST-T WAVE ABNORMALITY- ANT/INF LEADS BASELINE WANDER- V4-V6 ABNORMAL ECG Electronically Signed On 11-22-2020 16:12:19 CDT by David Mendoza D.O.
== END 2020-11-22 07:24 | disposition home or self-care (01) ==
PROVIDERS: Emergency Provider Emergency Medicine; PCP Family Medicine
DX: R07.89 Other chest pain (principal); R00.0 Tachycardia, unspecified; R94.31 Abnormal electrocardiogram [ECG] [EKG]; I45.10 Unspecified right bundle-branch block
CPT/HCPCS: 36415; 71045; 74177; 80053; 81001; 81025; 83605; 83690; 84484; 85025; 85380; 85610; 85730; 93005; 96361; 96365; 96375; 99284; A9270; J0131; J2270; J7030; Q9967

== ENCOUNTER 2021-01-23 05:15 | Emergency (ER) | payer OTHER, MEDICAID, SELFPAY ==
--- NOTE | ~2021-01-23 | XR_ITS ---
EXAMINATION: XR chest 1V portable EXAM DATE: 01/23/2021 06:07 INDICATION: Cough. TECHNIQUE: Portable AP frontal chest x-ray was obtained. Comparison is made to prior examination from 11/22/2020. FINDINGS: The lungs are clear. There are no pleural effusions. The cardiomediastinal silhouette is within normal limits. There is no pneumothorax suspected. The bones and soft tissues are unremarkab le. There is no significant interval change. IMPRESSION: No acute cardiopulmonary findings. Reviewed, dictated and finalized at [facility].
[2021-01-23 05:23] VITALS: BP 120/85; PULSE 109; RESP 18; TEMP 36.7; O2SAT 100
--- NOTE | 2021-01-23 05:32 | ED.GENADULT ---
HPI - General Adult General Chief complaint: Upper Respiratory Infection Stated complaint: cough and headache Time Seen by Provider: 01/23/21 05:23 History of Present Illness HPI narrative: Patient 40-year-old female who presents the emergency department with chief complaint of headache cough and generalized malaise. Patient reports that this is been going on for about a week she reports that she has had a productive cough has had nausea and vomiting and because of all of this is started having a headache. The patient states she has problems with generalized headaches reports this is not the worst headache of her life she also reports has been having frontal sinus pain Related Data Allergies Allergy/AdvReac Type Severity Reaction Status Date / Time vancomycin Allergy Intermediate Rash Verified 01/23/21 05:34 Latex, Natural Rubber Allergy Hives Verified 01/23/21 05:34 Review of Systems Review of Systems: Narrative: A 10 system review of systems was completed on the patient and is negative except for what is stated in the HPI. Nursing and ancillary documentation was reviewed. PMFSH Past Medical History Medical History Anxiety Depression Hypothyroid Surgical History Surgical History H/O: hysterectomy History of cholecystectomy Social History Social History Smoking status: Current every day smoker Alcohol intake: never Gender identity (if verbalized by the patient): Female Exam Narrative: Exam Narrative: GENERAL: Well-appearing, well-nourished, and in no acute distress. HEAD: Normocephalic, atraumatic. Tenderness to palpation in the right frontal sinus and right maxillary sinus EYES: PERRLA and EOMI. ENT: Nares clear, no rhinorrhea or epistaxis. Mucous membranes moist. NECK: Supple. CHEST: Clear to auscultation. No respiratory distress. HEART: Regular rate and rhythm. No murmur heard. Normal peripheral pulses. ABDOMEN: Soft, nontender, nondistended, normal active bowel sounds. EXTREMITIES: Normal range of motion. No edema. SKIN: Warm, dry, no rash. NEURO: No focal deficits. Alert and oriented x3. PSYCH: Normal mood and affect. Course Vital Signs Vital signs: Vital Signs Temperature 36.7 C 01/23/21 05:23 Pulse Rate 109 H 01/23/21 05:23 Respiratory Rate 18 01/23/21 05:23 Blood Pressure 120/85 01/23/21 05:23 Pulse Oximetry 100 01/23/21 05:23 Temperature 36.7 C 01/23/21 05:23 Pulse Rate 109 H 01/23/21 05:23 Respiratory Rate 18 01/23/21 05:23 Blood Pressure 120/85 01/23/21 05:23 Pulse Oximetry 100 01/23/21 05:23 Medical Decision Making Vital Signs Vital Signs: Vital Signs Temperature 36.7 C 01/23/21 05:23 Pulse Rate 109 H 01/23/21 05:23 Respiratory Rate 18 01/23/21 05:23 Blood Pressure 120/85 01/23/21 05:23 Pulse Oximetry 100 01/23/21 05:23 Temperature 36.7 C 01/23/21 05:23 Pulse Rate 109 H 01/23/21 05:23 Respiratory Rate 18 01/23/21 05:23 Blood Pressure 120/85 01/23/21 05:23 Pulse Oximetry 100 01/23/21 05:23 Lab Data Labs: Lab Results 01/23/21 Range/Units 05:58 SARS-CoV-2 RNA (RT-PCR) Pending Discharge Plan Discharge Clinical Impression: Acute bacterial sinusitis Patient Disposition: Home, Self-Care Condition: Stable Instructions: Antibiotic Form, Sinusitis (ED) Additional Instructions: A COVID-19 test was sent today you should self quarantine until the results of the test. Prescriptions: New amoxicillin-pot clavulanate [Augmentin] 875-125 mg tablet 1 tablet PO Q12H 10 Days Qty: 20 RF: 0 benzonatate 200 mg capsule 200 mg PO TID PRN (Reason: cough) Qty: 21 RF: 0 No Action nitrofurantoin monohyd/m-cryst [Macrobid] 100 mg capsule 100 mg PO Q12H 5 Days Qty: 10 RF: 0 sulfamethoxazo
[2021-01-23] MEDS: diphenhydrAMINE HCl INJ 50 MG/ML VIAL IM (05:50)
[2021-01-23] MEDS: KETOROLAC 30 MG/ML VIAL (*BKC) IM (05:51)
[2021-01-23] MEDS: PROCHLORPERAZINE EDISYLATE 10 MG/2 ML VIAL IM (05:53)
[2021-01-23 06:35] VITALS: BP 107/76; PULSE 104; RESP 20; O2SAT 100
[2021-01-23 17:56] LABS: SARS-CoV-2 RNA PCR Negative
== END 2021-01-23 06:35 | disposition home or self-care (01) ==
PROVIDERS: Emergency Provider Emergency Medicine; PCP Family Medicine
DX: J01.90 Acute sinusitis, unspecified (principal); B96.89 Other specified bacterial agents as the cause of diseases classified elsewhere; Z20.822 Contact with and (suspected) exposure to COVID-19
CPT/HCPCS: 71045; 96372; 99284; C9803; J0780; J1200; J1885; U0003; U0005

== ENCOUNTER 2021-02-18 10:55 | Emergency (ER) | payer OTHER, MEDICAID, SELFPAY ==
--- NOTE | ~2021-02-18 | CT_ITS ---
EXAMINATION: CT abdomen pelvis w con EXAM DATE: 02/18/2021 13:12 INDICATION: lower abdominal pain . TECHNIQUE: Spiral CT of the abdomen and pelvis was performed following intravenous injection of 100 m L Omnipaque 350. Axial, coronal and sagittal images of the abdomen and pelvis were reviewed. The do se-length product (DLP) for this examination was 1449.77 mGy-cm. The exposure was tailored according to patient size (auto mA exposure control), and iterative reconstruction (ASIR) was used as addition al dose reduction technique. Comparison is made to prior examination from 11/22/2020. FINDINGS: The liver, spleen, adrenal glands and pancreas are unremarkable. There are cholecystectomy clips. Portal and splenic veins are patent. Kidneys enhance symmetrically. There is no hydronephr osis. Probable partial hysterectomy. Left adnexal 4 cm cystic lesion most likely the dominant follicl e, or hemorrhagic cyst. The bladder is unremarkable. There is no retroperitoneal or pelvic lymphad enopathy. There is mild scattered arteriosclerotic disease. The appendix is normal. The stomach and small bowel are unremarkable. There is expected amount of c olonic stool. No free intraperitoneal gas. The heart is normal in size. There are no pericardial or pleural effusions. The lung bases are unremarkable. The bones are unremarkable. IMPRESSION: 1. No acute intra-abdominal findings. 2. Left adnexal 4 cm cystic lesion most likely the dominant follicle or a hemorrhagic cyst. Reviewed, dictated and finalized at [facility]. IMPRESSION: 1. No acute intra-abdominal findings. 2. Left adnexal 4 cm cystic lesion most likely the dominant follicle or a hemo rrhagic cyst.
--- NOTE | ~2021-02-18 | US_ITS ---
EXAMINATION: US pelvic complete DATE: 02/18/2021 14:29 INDICATION: Pelvic pain. TECHNIQUE: Multiple transabdominal sonographic images of the pelvis were obtained. COMPARISON: CT abdomen and pelvis 02/18/2021 FINDINGS: The uterus is absent. There is no free fluid in the pelvis. The right ovary measures 3.0 x 2.0 x 1.9 cm. The left ovary measures 6.0 x 2.9 x 3.9 cm. There are 2 cysts in the left ovary with the larger m easuring 3.6 cm. There is normal vascular flow in the ovaries. IMPRESSION: 1. Two cysts in left ovary with the larger measuring 3.6 cm, likely follicular cysts. Reviewed, dictated and finalized at [facility].
[2021-02-18 11:11] VITALS: BP 125/93; PULSE 117; RESP 16; TEMP 36.6; O2SAT 98
[2021-02-18 11:28] LABS: Basophils Absolute Auto 0.1 K/mm3 (0.0-0.1); Basophils Percent Auto 0.5 % (0.2-1.2); Eosinophils Absolute Auto 0.4 K/mm3 (0-0.3); Eosinophils Percent Auto 2.7 % (0-4.4); Hematocrit 43.9 % (37.0-47.0); Hemoglobin 14.4 g/dL (12.0-15.0); Immature Granulocyte Absolute 0.05 K/mm3 (0.00-0.031); Immature Granulocyte Percent A 0.4 % (0-0.5); Lymphocytes Absolute Auto 4.17 K/mm3 (0.9-3.2); Lymphocytes Percent Auto 32.1 % (18.3-44.2); Mean Corpuscular HGB Conc 32.8 g/dl (32-36); Mean Corpuscular Hemoglobin 31.2 pg (26-34); Mean Corpuscular Volume 95.2 fl (80-100); Mean Platelet Volume 9.8 fl (7.4-10.4); Monocytes Absolute Auto 0.7 K/mm3 (0.1-0.6); Monocytes Percent Auto 5.6 % (2.6-8.5); Neutrophils Absolute Auto 7.6 K/mm3 (1.3-6.7); Neutrophils Percent Auto 58.7 % (45.5-73.1); Platelet Count Result 284 k/mm3 (150-375); Red Blood Count 4.61 M/mm3 (4.2-5.4); Red Cell Distribution Width 13.1 % (11.5-14.5)
[2021-02-18 11:37] LABS: Alanine Aminotransferase 26 U/L (4-35); Albumin Level 4.4 g/dL (3.5-5.1); Alkaline Phosphatase 95 U/L (38-126); Anion Gap 9 mmol/L (8-16); Aspartate Amino Transferase 25 U/L (14-36); Bilirubin,Total 0.4 mg/dL (0.2-1.3); Blood Urea Nitrogen 10 mg/dL (7-17); Calcium 9.8 mg/dL (8.4-10.2); Carbon Dioxide 27 mmol/L (22-30); Chloride 103 mmol/L (98-107); Estimated CRCL calculation 96 ml/min; Estimated Glomerular Filt Rate > 60; Glucose 93 mg/dL (65-105); Lipase 254 U/L (23-300); Potassium 3.4 mmol/L (3.4-5.0); Sodium 139 mmol/L (137-145)
[2021-02-18 12:08] LABS: Add Urine Microscopic? YES; Appearance Urine Cloudy (Clear); Bacteria Urine Trace /hpf; Bilirubin Urine Negative (Negative); Blood Urine Negative (Negative); Color Urine Yellow (Yellow); Glucose Urine UA Negative (Negative); Ketones Urine Negative (Negative); Leukocyte Esterase Ur Negative LEU/UL (Negative); Mucus Urine Rare /lpf; Nitrate Urine Negative (Negative); Protein Urine Negative (Negative); Specific Grav Ur 1.023 (1.001-1.035); Squamous Epithelial Cell Urine Moderate /hpf (Few); WBC Urine 0-3 /hpf
--- NOTE | 2021-02-18 12:28 | ED.ABDPAIN ---
HPI - Abdominal Pain General Chief Complaint: Abdominal Pain Stated Complaint: low back/abd pain Time Seen by Provider: 02/18/21 12:04 Source: patient, RN notes reviewed and old records reviewed Mode of arrival: ambulatory Limitations: no limitations History of Present Illness HPI narrative: This is a 40 year old female with history of ovarian cyst who presents for evaluation of pelvic pain and lower back pain. She states she developed pelvic pain this morning and she describes her pain as labor . This pain has been constant but it intermittently worsens. She took ibuprofen for her pain without relief. She is also complaining for right buttock pain and lower back. This pain is worse with movement and she describes pain as sharp. Related Data Allergies Allergy/AdvReac Type Severity Reaction Status Date / Time vancomycin Allergy Intermediate Rash Verified 01/23/21 05:34 Latex, Natural Rubber Allergy Hives Verified 01/23/21 05:34 Review of Systems Review of Systems: All systems reviewed & are unremarkable except as noted in HPI and below Constitutional: Constitutional: Denies chills and Denies fever(s) Cardiovascular: Cardiovascular: Denies chest pain Gastrointestinal: Gastrointestinal: Reports abdominal pain, Reports diarrhea (chronic), Denies nausea and Denies vomiting Genitourinary: Genitourinary: Denies hematuria, Denies nocturia, Denies dysuria, Reports pelvic pain and Denies vaginal discharge Musculoskeletal: Musculoskeletal: Reports back pain PMF Past Medical History Medical History Anxiety Depression Hypothyroid Ovarian cyst Surgical History Surgical History H/O: hysterectomy History of cholecystectomy Social History Social History Smoking status: Current every day smoker Alcohol intake: never Gender identity (if verbalized by the patient): Female Exam Const: General: no acute distress and alert Orientation/consciousness: patient oriented x3 Eyes: EOM: EOMs intact bilaterally Resp: Effort & Inspection: normal respiratory effort and no retractions Auscultation: clear to auscultation bilaterally Cardio: Rate: regular rate Rhythm: regular rhythm Heart sounds: no murmurs GI: GI Palp: Yes Soft to palpation, Yes Tenderness to palpation present (GI) (RLQ, suprapubic, LLQ), No Guarding due to palpation present (GI) and No Rigid due to palpation Auscultation: normal bowel sounds : Speculum Exam - Cervix: normal appearance of the cervix and Cervical os closed Bimanual exam- vagina & uterus: cervical motion tenderness Other: white milky discharge Skin: General skin exam: normal color Rashes: no rashes Neuro: General: patient oriented x3, moves all extremities and CN's II-XI intact bilaterally Psych: Mental Status: mental status grossly normal Affect: normal affect Course Reevaluation(s) Reevaluation #1: PAtient states she feels better. I reviewed ultrasound with patient showing 2 left ovarian cyst but no sign of rupture at this time. 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 She will be started on antibiotics given leukocytosis pelvic pain. Date: 02/18/21 Time: 14:51 Vital Signs Vital signs: Vital Signs Temperature 97.9 F 02/18/21 11:11 Pulse Rate 117 H 02/18/21 11:11 Respiratory Rate 16 02/18/21 11:11 Blood Pressure 125/93 H 02/18/21 11:11 Pulse Oximetry 98 02/18/21 11:11 Temperature 97.9 F 02/18/21 11:11 Pulse Rate 75 02/18/21 15:13 Respiratory Rate 16 02/18/21 15:13 Blood Pressure 124/94 H 02/18/21 15:13 Pulse Oximetry 100 02/18/21 15:13 MDM - Abdominal Pain Lab Data Attestation: I reviewed the patient's lab results. Result diagrams: 02/18/21 11:16 02/18/21 11:16 Labs: Lab Results 02/18/21 02/18/21 02/18/21 Range/Unit
[2021-02-18] MEDS: LACTATED RINGERS 1,000 ML 999 ML IV CONT (12:33)
[2021-02-18] MEDS: ONDANSETRON INJ 4 MG/2 ML VIAL IV PUSH (12:33)
[2021-02-18] MEDS: MORPHINE SULFATE (*CRX) 4 MG/ML INJ IV PUSH (12:33)
[2021-02-18] MEDS: KETOROLAC 30 MG/ML VIAL (*BKC) IV PUSH (12:33)
[2021-02-18] MEDS: HYDROmorphone HCL INJ (*CRX) 1 MG/ML SYR 0.5 MG IV PUSH (14:06)
[2021-02-18] MEDS: WATER, STERILE FOR INJECTION 10 ML VIAL XX (15:01)
[2021-02-18] MEDS: cefTRIAXone 1 GM VIAL 0.5 GM IM (15:01)
[2021-02-18 15:13] VITALS: BP 124/94; PULSE 75; RESP 16; O2SAT 100
== END 2021-02-18 15:24 | disposition home or self-care (01) ==
PROVIDERS: Emergency Medicine; Emergency Provider General Practice; PCP Family Medicine
DX: N83.202 Unspecified ovarian cyst, left side (principal); D72.829 Elevated white blood cell count, unspecified; R10.2 Pelvic and perineal pain; E03.9 Hypothyroidism, unspecified; F17.200 Nicotine dependence, unspecified, uncomplicated
CPT/HCPCS: 36415; 74177; 76856; 80053; 81001; 83690; 85025; 87070; 87491; 87591; 87808; 96361; 96372; 96374; 96375; 99284; J0696; J1170; J1885; J2270; J2405; J7120; Q9967

== ENCOUNTER 2021-04-08 01:28 | Emergency (ER) | payer OTHER, MEDICAID, SELFPAY ==
[2021-04-08 01:35] VITALS: BP 151/103; PULSE 88; RESP 18; O2SAT 100
--- NOTE | 2021-04-08 02:10 | ED.FEMALEGU ---
HPI - Female Genitourinary General Chief complaint: Urogenital-Female Stated complaint: POSS UTI, ARM PAIN Time Seen by Provider: 04/08/21 02:12 Source: patient Mode of arrival: ambulatory Limitations: no limitations History of Present Illness HPI Narrative: Patient is a 41-year-old female complaining of bladder infection described as low back pain, nausea accompanied by dysuria that started 2 days ago. Patient states that she has a history of UTIs and presents usually this way. Patient denies any abdominal pain, vomiting, diarrhea, fever or chills. Related Data Allergies Allergy/AdvReac Type Severity Reaction Status Date / Time vancomycin Allergy Intermediate Rash Verified 01/23/21 05:34 Latex, Natural Rubber Allergy Hives Verified 01/23/21 05:34 Review of Systems Review of Systems: All systems reviewed & are unremarkable except as noted in HPI and below Constitutional: Constitutional: Denies body ache(s), Denies chills, Denies excessive sweating, Denies fatigue, Denies fever(s), Denies headache(s), Denies lethargy, Denies malaise, Denies weakness and Denies weight loss Eyes: Eyes: Denies blurry vision, Denies change in vision and Denies loss of vision ENT: Denies dizziness, Denies ear discharge, Denies headache(s), Denies lip swelling, Denies epistaxis, Denies nasal congestion, Denies neck pain, Denies throat swelling and Denies tongue swelling Cardiovascular: Cardiovascular: Denies chest pain, Denies chest pain at rest, Denies chest pain with activity, Denies diaphoresis, Denies rapid heart rate, Denies edema, Denies irregular heart rhythm, Denies lightheadedness, Denies palpitations, Denies dyspnea and Denies dyspnea on exertion Respiratory: Respiratory: Denies chest congestion, Denies cough, Denies hemoptysis, Denies dyspnea and Denies dyspnea on exertion Gastrointestinal: Gastrointestinal: Denies abdominal pain, Denies melena, Denies hematochezia, Denies diarrhea, Denies nausea, Denies vomiting and Denies hematemesis Musculoskeletal: Musculoskeletal: Denies abnormal gait, Denies deformity, Denies joint swelling, Denies limited range of motion, Denies neck pain and Denies numbness Neurologic: Denies Abnormal speech present, Denies abnormal gait, Denies confusion, Denies dizziness, Denies headache(s), Denies focal weakness, Denies loss of vision, Denies numbness, Denies Other visual disturbances, Denies Sensory deficit (Neuro) and Denies weakness Psychiatric: Psychiatric: Denies confusion, Denies depression, Denies auditory hallucinations, Denies homicidal ideation and Denies suicidal ideation Endocrine: Endocrine: Denies cold intolerance, Denies excessive sweating, Denies fatigue, Denies heat intolerance and Denies palpitations Hematologic/Lymphatic: Hematologic/Lymphatic: Denies easy bleeding and Denies easy bruising Allergic/Immunologic: Allergic/Immunologic: Denies lip swelling, Denies throat swelling and Denies tongue swelling PMFSH Past Medical History Medical History Anxiety Depression Hypothyroid Ovarian cyst Surgical History Surgical History H/O: hysterectomy History of cholecystectomy Social History Social History Smoking status: Current every day smoker Alcohol intake: never Gender identity (if verbalized by the patient): Female Exam Const: General: cooperative, healthy appearing, comfortable, no acute distress, well developed, alert and awake; No confusion Orientation/consciousness: oriented to person, oriented to place, oriented to time, patient oriented x3 and No confusion Limitations: no limitations HENMT: Head: normal to inspection, normocephalic and atraumatic Ears: hearing grossly normal bilaterally, TM normal on the right and TM normal on the left General nose exam: Normal external nose present, Normal nares present and
[2021-04-08 02:37] LABS: Appearance Urine Clear (Clear); Bilirubin Urine Negative (Negative); Color Urine Yellow (Yellow); Glucose Urine UA Negative (Negative); Ketones Urine Negative (Negative); Leukocyte Esterase Ur Trace LEU/UL (Negative); Nitrate Urine Positive (Negative); Protein Urine Negative (Negative); Urobilinogen Urine 0.2 mg/dL (<2.0); pH Urine 6.5 (5.0-9.0)
[2021-04-08 02:39] LABS: Add Urine Microscopic? YES; Blood Urine Trace (Negative)
[2021-04-08 02:41] LABS: Bacteria Urine Trace /hpf; Squamous Epithelial Cell Urine Few /hpf (Few)
[2021-04-08] MEDS: KETOROLAC 30 MG/ML VIAL (*BKC) IM (03:45)
[2021-04-08] MEDS: PROMETHAZINE HCL 25 MG/ML AMPUL IM (03:46)
== END 2021-04-08 04:02 | disposition home or self-care (01) ==
PROVIDERS: Emergency Provider Emergency Medicine; PCP Family Medicine
DX: N30.00 Acute cystitis without hematuria (principal); E03.9 Hypothyroidism, unspecified; F17.200 Nicotine dependence, unspecified, uncomplicated
CPT/HCPCS: 81001; 81025; 96372; 99284; J1885; J2550

== ENCOUNTER 2021-08-09 15:42 | Outpatient (CLI) | payer OTHER, MEDICAID, SELFPAY ==
--- NOTE | ~2021-08-09 | MR_ITS ---
EXAMINATION: MR cervical spine wo con DATE: 08/09/2021 17:04 INDICATION: Cervical radiculopathy. TECHNIQUE: Magnetic resonance imaging (MRI) of the cervical spine was performed without intravenous c ontrast. Sequences included sagittal T2-weighted FSE, sagittal T2-weighted FS FSE, sagittal T1-weight ed FSE, axial MERGE, and axial T2-weighted FSE. COMPARISON: None FINDINGS: There is kyphosis of cervical spine. There is 3 degrees dextrocurvature of cervical spine. Vertebral body heights are normal. Intervertebral disc heights are normal. The spinal cord signal int ensity is normal. The following disc levels are specifically discussed: C2-C3: The disc does not extend beyond the endplate margin. There is no uncovertebral joint osteoarth ritis. There is moderate right and severe left facet joint osteoarthritis. There is no neural foramin al stenosis. There is no central canal stenosis. C3-C4: The disc does not extend beyond the endplate margin. There is mild left uncovertebral joint os teoarthritis. There is moderate bilateral facet joint osteoarthritis. There is mild left neural danette inal stenosis. There is no central canal stenosis. C4-C5: The disc does not extend beyond the endplate margin. There is no uncovertebral joint osteoarth ritis. There is mild right and moderate left facet joint osteoarthritis. There is no neural foraminal stenosis. There is no central canal stenosis. C5-C6: The disc does not extend beyond the endplate margin. There is no uncovertebral joint osteoarth ritis. There is mild bilateral facet joint osteoarthritis. There is no neural foraminal stenosis. The re is no central canal stenosis. C6-C7: The disc does not extend beyond the endplate margin. There is mild bilateral uncovertebral rose nt osteoarthritis. There is moderate right facet joint osteoarthritis. There is no neural foraminal s tenosis. There is no central canal stenosis. C7-T1: The disc does not extend beyond the endplate margin. There is no uncovertebral joint osteoarth ritis. There is mild right and moderate left facet joint osteoarthritis. There is mild left neural fo raminal stenosis. There is no central canal stenosis. IMPRESSION: 1. Mild cervical spondylosis. 2. Cervical kyphosis. Reviewed, dictated and finalized at location D. KO KOHANGA REO
--- NOTE | ~2021-08-09 | MR_ITS ---
EXAMINATION: MR lumbar spine wo con DATE: 08/09/2021 17:04 INDICATION: Lumbar radiculopathy. TECHNIQUE: Magnetic resonance imaging (MRI) of the lumbar spine was performed without intravenous con trast. Sequences included sagittal T2-weighted FSE, sagittal T2-weighted FS FSE, sagittal T1-weighted FSE, and axial T2-weighted FSE. COMPARISON: None FINDINGS: Bone alignment is normal. There is a Schmorl's node of L4 superior endplate. Intervertebral disc heights are normal. The distal spinal cord signal intensity is normal. The conus medullaris is at L1. The following disc levels are specifically discussed: L1-L2: The disc does not extend beyond the endplate margin. There is moderate bilateral facet joint o steoarthritis. There is no neural foraminal stenosis. There is no central canal stenosis. L2-L3: The disc does not extend beyond the endplate margin. There is moderate bilateral facet joint o steoarthritis. There is no neural foraminal stenosis. There is no central canal stenosis. L3-L4: The disc does not extend beyond the endplate margin. There is mild bilateral facet joint osteo arthritis. There is no neural foraminal stenosis. There is no central canal stenosis. L4-L5: The disc does not extend beyond the endplate margin. There is severe right and moderate left f acet joint osteoarthritis. There is no neural foraminal stenosis. There is no central canal stenosis. L5-S1: There is a right central protrusion with annular fissure. There is mild bilateral facet joint osteoarthritis. There is no neural foraminal stenosis. There is no central canal stenosis. IMPRESSION: 1. Mild lumbar spondylosis. Reviewed, dictated and finalized at location D. TECHNICAL ARCHITECT IMPRESSION: 1. Mild lumbar spondylosis.
== END 2021-08-09 15:43 | disposition home or self-care (01) ==
LOC: ANHIMG 15:48
PROVIDERS: PCP Registered Nurse; Visit Provider Pain Medicine Interventional Pain Medicine
DX: E66.9 Obesity, unspecified (principal); F33.1 Major depressive disorder, recurrent, moderate; G89.4 Chronic pain syndrome; M25.521 Pain in right elbow; M25.522 Pain in left elbow; M47.26 Other spondylosis with radiculopathy, lumbar region; M47.27 Other spondylosis with radiculopathy, lumbosacral region; M47.22 Other spondylosis with radiculopathy, cervical region
CPT/HCPCS: 72141; 72148

== ENCOUNTER 2021-09-17 04:40 | Emergency (ER) | payer OTHER, MEDICAID, SELFPAY ==
--- NOTE | ~2021-09-17 | XR_ITS ---
EXAMINATION: XR chest 1V portable DATE: 09/17/2021 05:12 INDICATION: Shortness of breath. COVID-19 positive 09/14/21. TECHNIQUE: A single frontal view of the chest was obtained. COMPARISON: Chest single view 01/23/2021, CT abdomen and pelvis 02/18/2021 FINDINGS: There is mild scarring at the lung apices. No pleural effusion or pneumothorax. The heart s ize is normal. IMPRESSION: 1. Stable mild scarring at the lung apices. Reviewed, dictated and finalized at location E. IR SERVICE DISPATCHER
[2021-09-17 04:46] VITALS: BP 138/91; PULSE 103; RESP 22; TEMP 36.7; O2SAT 100
--- NOTE | 2021-09-17 04:52 | ECG_ITS ---
Measurements Intervals [place] Rate: 96 P: 46 NE: 150 QRS: 43 QRSD: 77 T: 50 QT: 351 QTc: 445 Interpretive Statements SINUS RHYTHM BASELINE WANDER- V2-V3 NORMAL ECG Electronically Signed On 09-17-2021 6:50:34 HEM INSPECTOR by David Mendoza D.O.
[2021-09-17 04:59] VITALS: PULSE 102; O2SAT 96
[2021-09-17 05:12] VITALS: BP 140/90; PULSE 104; RESP 16; O2SAT 94
[2021-09-17 05:12] LABS: Basophils Absolute Auto 0.1 K/mm3 (0.0-0.1); Basophils Percent Auto 0.8 % (0.2-1.2); Eosinophils Absolute Auto 0.3 K/mm3 (0-0.3); Eosinophils Percent Auto 3.2 % (0-4.4); Hematocrit 40.7 % (37.0-47.0); Hemoglobin 13.5 g/dL (12.0-15.0); Immature Granulocyte Absolute 0.04 K/mm3 (0.00-0.031); Immature Granulocyte Percent A 0.4 % (0-0.5); Lymphocytes Percent Auto 27.7 % (18.3-44.2); Mean Corpuscular HGB Conc 33.2 g/dl (32-36); Mean Corpuscular Hemoglobin 32.8 pg (26-34); Mean Corpuscular Volume 98.8 fl (80-100); Mean Platelet Volume 9.4 fl (7.4-10.4); Monocytes Absolute Auto 0.6 K/mm3 (0.1-0.6); Monocytes Percent Auto 6.9 % (2.6-8.5); Neutrophils Absolute Auto 5.5 K/mm3 (1.3-6.7); Platelet Count Result 257 k/mm3 (150-375); Red Blood Count 4.12 M/mm3 (4.2-5.4); Red Cell Distribution Width 13.2 % (11.5-14.5)
[2021-09-17 05:16] LABS: Add Urine Microscopic? NO; Appearance Urine Clear (Clear); Bilirubin Urine Negative (Negative); Blood Urine Negative (Negative); Color Urine Yellow (Yellow); Glucose Urine UA Negative (Negative); Ketones Urine Negative (Negative); Leukocyte Esterase Ur Negative LEU/UL (Negative); Nitrate Urine Negative (Negative); Protein Urine Negative (Negative); Specific Grav Ur 1.028 (1.001-1.035); Urobilinogen Urine Negative mg/dL (<2.0)
[2021-09-17 05:23] LABS: Alanine Aminotransferase 27 U/L (4-35); Albumin Level 4.2 g/dL (3.5-5.1); Alkaline Phosphatase 125 U/L (38-126); Anion Gap 5 mmol/L (8-16); Aspartate Amino Transferase 26 U/L (14-36); Bilirubin,Total 0.2 mg/dL (0.2-1.3); Blood Urea Nitrogen 11 mg/dL (7-17); Calcium 9.1 mg/dL (8.4-10.2); Carbon Dioxide 25 mmol/L (22-30); Chloride 107 mmol/L (98-107); Estimated CRCL calculation 117 ml/min; Estimated Glomerular Filt Rate > 60; Glucose 120 mg/dL (65-110); Potassium 3.6 mmol/L (3.4-5.0); Sodium 137 mmol/L (137-145)
[2021-09-17 05:25] LABS: D Dimer 0.39 ug/mL (<0.48)
--- NOTE | 2021-09-17 05:25 | ED.SOB ---
HPI - SOB/Dyspnea General Chief Complaint: Shortness of Breath/Dyspnea Stated Complaint: COVID + 09/15/21, SOB, body aches, fever Time Seen by Provider: 09/17/21 05:23 Source: patient Mode of arrival: ambulatory Limitations: no limitations History of Present Illness HPI Narrative: Patient is a 41-year-old female complaining of shortness of breath, cough, nasal congestion, body aches, fever, lack of appetite, fatigue x3 days since she tested positive for Covid. Patient states that shortness of breath is worse when she lays down. Patient states that she is fully vaccinated. Patient denies any chest pain, abdominal pain, nausea, vomiting or diarrhea. Related Data Allergies Allergy/AdvReac Type Severity Reaction Status Date / Time vancomycin Allergy Intermediate Rash Verified 09/17/21 05:03 Latex, Natural Rubber Allergy Hives Verified 09/17/21 05:03 Review of Systems Review of Systems: All systems reviewed & are unremarkable except as noted in HPI and below Constitutional: Constitutional: Denies excessive sweating, Denies fatigue, Denies headache(s), Denies lethargy, Denies malaise, Denies weakness and Denies weight loss Eyes: Eyes: Denies blurry vision, Denies change in vision and Denies loss of vision ENT: Denies dizziness, Denies ear discharge, Denies headache(s), Denies lip swelling, Denies epistaxis, Denies neck pain, Denies throat swelling and Denies tongue swelling Cardiovascular: Cardiovascular: Denies chest pain, Denies chest pain at rest, Denies chest pain with activity, Denies diaphoresis, Denies rapid heart rate, Denies edema, Denies irregular heart rhythm, Denies lightheadedness and Denies palpitations Respiratory: Respiratory: Denies hemoptysis Gastrointestinal: Gastrointestinal: Denies abdominal pain, Denies melena, Denies hematochezia, Denies diarrhea, Denies nausea, Denies vomiting and Denies hematemesis Musculoskeletal: Musculoskeletal: Denies abnormal gait, Denies deformity, Denies joint swelling, Denies limited range of motion, Denies neck pain and Denies numbness Neurologic: Denies Abnormal speech present, Denies abnormal gait, Denies confusion, Denies dizziness, Denies headache(s), Denies focal weakness, Denies loss of vision, Denies numbness, Denies Other visual disturbances, Denies Sensory deficit (Neuro) and Denies weakness Psychiatric: Psychiatric: Denies confusion, Denies depression, Denies auditory hallucinations, Denies homicidal ideation and Denies suicidal ideation Endocrine: Endocrine: Denies cold intolerance, Denies excessive sweating, Denies fatigue, Denies heat intolerance and Denies palpitations Hematologic/Lymphatic: Hematologic/Lymphatic: Denies easy bleeding and Denies easy bruising Allergic/Immunologic: Allergic/Immunologic: Denies lip swelling, Denies throat swelling and Denies tongue swelling PMFSH Past Medical History Medical History Anxiety Depression Hypothyroid Ovarian cyst Surgical History Surgical History H/O: hysterectomy History of cholecystectomy Social History Social History Smoking status: Current every day smoker Alcohol intake: never Gender identity (if verbalized by the patient): Female Exam Const: General: cooperative, healthy appearing, comfortable, no acute distress, well developed, alert and awake; No confusion Orientation/consciousness: oriented to person, oriented to place, oriented to time, patient oriented x3 and No confusion Limitations: no limitations HENMT: Head: normal to inspection, normocephalic and atraumatic Ears: hearing grossly normal bilaterally, TM normal on the right and TM normal on the left General nose exam: Normal external nose present, Normal nares present and No nasal discharge present Face and sinus: normal facial exam Mouth: Yes Normal oral and palatal mucosa pre
[2021-09-17 05:31] VITALS: BP 126/93; PULSE 96; RESP 14; O2SAT 95
[2021-09-17] MEDS: DEXAMETHASONE SOD PHOS INJ 4 MG/ML VIAL 8 MG IV PUSH (05:49)
[2021-09-17] MEDS: HYDROcodone/acetaminophen (*CRX) 5-325 MG TABLET 1 TAB PO (06:05)
[2021-09-17 06:21] LABS: Troponin I < 0.012 ng/mL (0.000-0.034)
[2021-09-17 06:37] VITALS: BP 131/83; PULSE 90; RESP 24; O2SAT 99
== END 2021-09-17 06:37 | disposition home or self-care (01) ==
PROVIDERS: Emergency Provider Emergency Medicine; PCP Registered Nurse
DX: U07.1 COVID-19 (principal); E03.9 Hypothyroidism, unspecified; F17.200 Nicotine dependence, unspecified, uncomplicated
CPT/HCPCS: 36415; 71045; 80053; 81003; 84484; 85025; 85380; 93005; 96374; 99284; A9270; J1100

== ENCOUNTER 2021-12-01 13:46 | Outpatient (CLI) | payer OTHER, MEDICAID, SELFPAY ==
--- NOTE | ~2021-12-01 | XR_ITS ---
EXAMINATION: XR pelvis 1-2V DATE: 12/01/2021 14:14 INDICATION: Sacral pain. Fall. TECHNIQUE: An anteroposterior view of the pelvis was obtained. COMPARISON: CT abdomen and pelvis 02/18/2021 FINDINGS: Bone alignment is normal. No fracture. There is mild osteoarthritis of the hips characteriz ed by tiny osteophytes. No joint space narrowing. There is a tubal ligation clip on the right. IMPRESSION: 1. Mild osteoarthritis of the hips. Reviewed, dictated and finalized at location B.
--- NOTE | ~2021-12-01 | XR_ITS ---
EXAMINATION: XR elbow LT 2V, XR elbow RT 2V DATE: 12/01/2021 14:13 INDICATION: Bilateral elbow pain. TECHNIQUE: 1. Anteroposterior and lateral views of the left elbow were obtained. 2. Anteroposterior and lateral views of the right elbow were obtained. COMPARISON: None. FINDINGS: Alignment is normal at both elbows. No fracture or joint effusion. Joint spaces are normal. Soft tiss ues are unremarkable. IMPRESSION: 1. Negative bilateral elbow radiographs. Reviewed, dictated and finalized at location A. IMPRESSION: 1. Negative bilateral elbow radiographs.
--- NOTE | ~2021-12-01 | XR_ITS ---
EXAMINATION: XR hand LT min 3V, XR hand RT min 3V DATE: 12/01/2021 14:13 INDICATION: Pain at the bilateral first carpal metacarpal joints. TECHNIQUE: 1. Posteroanterior, oblique and lateral views of the left hand were obtained. 2. Posteroanterior, oblique and lateral views of the right hand were obtained. COMPARISON: None. FINDINGS: Alignment is normal. Bilateral hands and wrists. No fracture. Mild osteoarthritis at the right distal radioulnar, bilateral radiocarpal, triscaphe and first carpal metacarpal joints. IMPRESSION: 1. 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 Reviewed, dictated and finalized at location A. IMPRESSION: 1. 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
--- NOTE | ~2021-12-01 | XR_ITS ---
EXAMINATION: XR sacroiliac joints min 3V DATE: 12/01/2021 14:15 INDICATION: Pain at the sacroiliac joints. TECHNIQUE: 3 views of the sacroiliac joints were obtained. COMPARISON: None. FINDINGS: Bone alignment is normal. No fracture. The sacral iliac joints are normal. There is a right -sided tubal ligation clip. IMPRESSION: 1. Normal sacroiliac joints. Reviewed, dictated and finalized at location B.
== END 2021-12-01 13:47 | disposition home or self-care (01) ==
LOC: ANHIMG 13:49
PROVIDERS: PCP Registered Nurse; Visit Provider Pain Medicine Interventional Pain Medicine
DX: M16.0 Bilateral primary osteoarthritis of hip (principal); M19.032 Primary osteoarthritis, left wrist; M19.031 Primary osteoarthritis, right wrist; M18.0 Bilateral primary osteoarthritis of first carpometacarpal joints; M25.522 Pain in left elbow; M25.521 Pain in right elbow; M53.3 Sacrococcygeal disorders, not elsewhere classified
CPT/HCPCS: 72170; 72202; 73070; 73130

== ENCOUNTER 2022-02-20 18:20 | Emergency (ER) | payer OTHER, MEDICAID, SELFPAY ==
[2022-02-20 18:29] VITALS: BP 113/83; PULSE 112; RESP 16; TEMP 36.3; O2SAT 99
--- NOTE | 2022-02-20 19:55 | ED.URI ---
HPI - URI/Sore Throat General Chief Complaint: Upper Respiratory Infection Stated Complaint: Sore throat Time Seen by Provider: 02/20/22 19:44 Source: patient Mode of arrival: ambulatory Limitations: no limitations History of Present Illness HPI Narrative: Patient presents today complaining of a 5-day history of severe sore throat. Denies any additional symptoms to include cough, congestion, fever, rhinorrhea. Pain extends from her throat down into her esophagus and increases at times when she swallows. She does have history of GERD for which she takes Prilosec 1 time daily. She currently rates her pain 5/10 and has been taking NyQuil, which helps numb the throat at times. She has also tried Pepto and Benadryl without relief. States the barbecue chicken she tried to eat for dinner tonight was very painful. Related Data Home Medications Medication Instructions Recorded Confirmed atorvastatin 20 mg tablet 20 mg PO DAILY 02/20/22 02/20/22 celecoxib 200 mg capsule cap 02/20/22 clonidine HCl 0.1 mg tablet tablet 02/20/22 duloxetine 60 mg capsule,delayed cap PO 02/20/22 release ergocalciferol (vitamin D2) 1,250 cap 02/20/22 mcg (50,000 unit) capsule levothyroxine 175 mcg tablet tablet 02/20/22 lisinopril 10 mg tablet tablet 02/20/22 metoprolol tartrate 50 mg tablet tablet 02/20/22 omeprazole 10 mg capsule,delayed mg 02/20/22 release omeprazole 40 mg capsule,delayed cap 02/20/22 release oxycodone-acetaminophen 7.5 mg-325 tablet 02/20/22 mg tablet pravastatin 20 mg tablet tablet 02/20/22 tizanidine 4 mg tablet tablet 02/20/22 Allergies Allergy/AdvReac Type Severity Reaction Status Date / Time vancomycin Allergy Intermediate Rash Verified 09/17/21 05:03 Latex, Natural Rubber Allergy Hives Verified 09/17/21 05:03 Review of Systems Review of Systems: CONSTITUTIONAL: Denies body aches, fever, chills, or sweats. EYES: Denies visual changes, redness, or discharge. ENT: Denies rhinorrhea, congestion or otalgia.+ Sore throat CARDIOVASCULAR: Denies chest pain, palpitations, or edema. RESPIRATORY: Denies cough or dyspnea. GASTROINTESTINAL: Denies abdominal pain, nausea, vomiting, or diarrhea. GENITOURINARY: Denies dysuria or hematuria. SKIN: Denies rash, itching, or wounds. MUSCULOSKELETAL: Denies back pain, joint pain, or myalgia. NEUROLOGIC: Denies headache, numbness, tingling, or weakness. PSYCH: Denies depression or anxiety. PMFSH Past Medical History Medical History Anxiety Depression Hypothyroid Ovarian cyst Surgical History Surgical History H/O: hysterectomy History of cholecystectomy Social History Social History Smoking status: Current every day smoker Alcohol intake: never Gender identity (if verbalized by the patient): Female Comments At time of signature, I have reviewed and agree with nursing past medical, surgical, social and family history unless otherwise noted. Please see nursing chart for further information. There is no relevant family history pertinent to the presenting complaint Exam Narrative: GENERAL: Well-appearing, well-nourished, and in no acute distress. HEAD: Normocephalic, atraumatic. EYES: EOMI. No redness or drainage. Conjunctivae normal. ENT: Mucous membranes pink and moist. Nares clear. No rhinorrhea. TMs normal bilaterally. Throat appears normal. Uvula midline. NECK: Normal AROM. Supple. No lymphadenopathy. CHEST: No respiratory distress. Clear to auscultation. HEART: Regular rate and rhythm. No murmur appreciated. Normal peripheral pulses. EXTREMITIES: Normal range of motion. No edema. SKIN: Warm, dry, no rash. Capillary refill normal. Normal skin turgor. NEURO: No focal deficits. Alert and oriented x3. Gait steady. PSYCH: Normal affect. No signs of depress
== END 2022-02-20 20:02 | disposition home or self-care (01) ==
PROVIDERS: Emergency Provider Nurse Practitioner; PCP Registered Nurse
DX: J02.9 Acute pharyngitis, unspecified (principal); F17.200 Nicotine dependence, unspecified, uncomplicated; E03.9 Hypothyroidism, unspecified
CPT/HCPCS: 87081; 87880; 99213; G0463

== ENCOUNTER 2022-08-13 03:44 | Emergency (ER) | payer OTHER, MEDICAID, SELFPAY ==
[2022-08-13] VITALS (15 sets, daily range): BP systolic 113–135; BP diastolic 64–99; PULSE 60–86; RESP 7–24; TEMP 37.2; O2SAT 98
--- NOTE | ~2022-08-13 | XR_ITS ---
EXAMINATION: XR chest 2V DATE: 08/13/2022 06:38 INDICATION: Chest pain. TECHNIQUE: Frontal and lateral views of the chest were obtained. COMPARISON: Chest single view 09/17/2021, CT abdomen and pelvis 02/18/2021 FINDINGS: There is mild scarring at the lung apices. No pleural effusion or pneumothorax. The heart s ize is normal. Pectus excavatum is noted. IMPRESSION: 1. Stable mild scarring at the lung apices. Reviewed, dictated and finalized at location A. CH/LANGUAGE THERAPIST
--- NOTE | 2022-08-13 04:03 | ECG_ITS ---
Measurements Intervals [place] Rate: 78 P: 46 IN: 146 QRS: 37 QRSD: 89 T: 37 QT: 402 QTc: 459 Interpretive Statements SINUS RHYTHM NORMAL ELECTROCARDIOGRAM COMPARED TO ECG 09/17/2021 04:59:29 NO SIGNIFICANT CHANGES Electronically Signed On 08-13-2022 9:49:37 DIVISION CHIEF by Tab Goldman M.D.
[2022-08-13 05:02] LABS: Basophils Absolute Auto 0.1 K/mm3 (0.0-0.1); Basophils Percent Auto 0.5 % (0.2-1.2); Eosinophils Absolute Auto 0.2 K/mm3 (0-0.3); Eosinophils Percent Auto 1.9 % (0-4.4); Hematocrit 41.6 % (37.0-47.0); Hemoglobin 13.4 g/dL (12.0-15.0); Immature Granulocyte Absolute 0.06 K/mm3 (0.00-0.031); Immature Granulocyte Percent A 0.5 % (0-0.5); Lymphocytes Absolute Auto 2.21 K/mm3 (0.9-3.2); Lymphocytes Percent Auto 18.9 % (18.3-44.2); Mean Corpuscular HGB Conc 32.2 g/dl (32-36); Mean Corpuscular Hemoglobin 32.5 pg (26-34); Mean Platelet Volume 9.5 fl (7.4-10.4); Monocytes Absolute Auto 0.7 K/mm3 (0.1-0.6); Monocytes Percent Auto 5.6 % (2.6-8.5); Neutrophils Absolute Auto 8.5 K/mm3 (1.3-6.7); Neutrophils Percent Auto 72.6 % (45.5-73.1); Platelet Count Result 251 k/mm3 (150-375); Red Blood Count 4.12 M/mm3 (4.2-5.4); Red Cell Distribution Width 13.9 % (11.5-14.5); White Blood Count 11.7 K/mm3 (4.5-10.0)
[2022-08-13] MEDS: KETOROLAC 30 MG/ML VIAL (*BKC) IV PUSH (05:06)
[2022-08-13] MEDS: SODIUM CHLORIDE 0.9% IV 1,000 ML 999 ML IV CONT (05:07)
[2022-08-13 05:15] LABS: Add Urine Microscopic? NO; Appearance Urine Clear (Clear); Bilirubin Urine Negative (Negative); Blood Urine Negative (Negative); Color Urine Yellow (Yellow); Glucose Urine UA Negative (Negative); Ketones Urine Negative (Negative); Leukocyte Esterase Ur Negative LEU/UL (Negative); Nitrate Urine Negative (Negative); Protein Urine Negative (Negative); Urobilinogen Urine 0.2 mg/dL (<2.0); pH Urine 7.5 (5.0-9.0)
[2022-08-13 05:15] LABS: Prothrombin Time 12.4 Seconds (11.1-14.7)
[2022-08-13 05:16] LABS: Partial Thromboplastin Time 25.6 SECONDS (22.3-36.8)
[2022-08-13 05:18] LABS: Alanine Aminotransferase 30 U/L (6-35); Albumin Level 2.6 g/dL (3.5-5.1); Alkaline Phosphatase 95 U/L (38-126); Anion Gap -1 mmol/L (8-16); Aspartate Amino Transferase 23 U/L (14-36); Bilirubin,Total < 0.1 mg/dL (0.2-1.3); Blood Urea Nitrogen 7 mg/dL (7-17); Calcium 6.7 mg/dL (8.4-10.2); Carbon Dioxide 28 mmol/L (22-30); Chloride 109 mmol/L (98-107); Estimated Glomerular Filt Rate > 60; Glucose 73 mg/dL (65-110); Lipase 58 U/L (23-300); Magnesium 1.5 mg/dL (1.6-2.3); Potassium 3.3 mmol/L (3.4-5.0); Sodium 136 mmol/L (137-145)
[2022-08-13 05:30] LABS: Troponin I < 0.012 ng/mL (0.000-0.034)
[2022-08-13 06:16] LABS: Free T4 Free Thyroxine Reflex 1.25 ng/dL (0.78-2.19)
--- NOTE | 2022-08-13 07:14 | ED.GENADULT ---
HPI - General Adult General Chief complaint: Unspecified Stated complaint: multiple complaints Time Seen by Provider: 08/13/22 04:12 Source: patient and RN notes reviewed Mode of arrival: ambulatory Limitations: no limitations History of Present Illness HPI narrative: This is a 42 year old female who presents for evaluation of palpitations. She states she woke up feeling like her heart was being abnormal. She reports it felt like it was skipping a beat. she also reports dizziness, headache, nausea. She also reports dysuria for 2 days with left side pain. She states she is not concerned of her left flank pain. THis pain is nonradiating. She iveth hematuria fever or chills. Related Data Home Medications Medication Instructions Recorded Confirmed atorvastatin 20 mg tablet 20 mg PO DAILY 02/20/22 02/20/22 celecoxib 200 mg capsule cap 02/20/22 clonidine HCl 0.1 mg tablet tablet 02/20/22 duloxetine 60 mg capsule,delayed cap PO 02/20/22 release ergocalciferol (vitamin D2) 1,250 cap 02/20/22 mcg (50,000 unit) capsule levothyroxine 175 mcg tablet tablet 02/20/22 lisinopril 10 mg tablet tablet 02/20/22 metoprolol tartrate 50 mg tablet tablet 02/20/22 omeprazole 10 mg capsule,delayed mg 02/20/22 release omeprazole 40 mg capsule,delayed cap 02/20/22 release oxycodone-acetaminophen 7.5 mg-325 tablet 02/20/22 mg tablet pravastatin 20 mg tablet tablet 02/20/22 tizanidine 4 mg tablet tablet 02/20/22 Allergies Allergy/AdvReac Type Severity Reaction Status Date / Time vancomycin Allergy Intermediate Rash Verified 08/13/22 04:04 Latex, Natural Rubber Allergy Hives Verified 08/13/22 04:04 Review of Systems Constitutional: Constitutional: Denies weakness Cardiovascular: Cardiovascular: Denies syncope, Denies rapid heart rate, Reports irregular heart rhythm, Denies leg edema and Denies dyspnea Respiratory: Respiratory: Denies chest congestion, Denies hemoptysis, Denies excessive phlegm production and Denies dyspnea Gastrointestinal: Gastrointestinal: Denies abdominal pain, Denies hematochezia, Denies diarrhea and Denies vomiting Genitourinary: Genitourinary: Denies hematuria and Reports dysuria Musculoskeletal: Musculoskeletal: Denies joint swelling, Denies loss of height and Denies muscle weakness Neurologic: Denies syncope, Denies focal weakness and Denies weakness PMFSH Past Medical History Medical History Anxiety Depression Hypothyroid Ovarian cyst Surgical History Surgical History H/O: hysterectomy History of cholecystectomy Social History Social History Smoking status: Current every day smoker Alcohol intake: never Gender identity (if verbalized by the patient): Female Exam Narrative: GENERAL: Well-appearing, well-nourished, and in no acute distress. obese HEAD: Normocephalic, atraumatic EYES: PERRLA and EOMI, conjunctiva clear without discharge THROAT:Mucous membranes moist, Oropharynx normal without erythema, exudate, peritonsillar swelling or fluctuance NECK: Supple, without lymphadenopathy or mass RESPIRATORY: No respiratory distress, Airway patent, Respirations non-labored, Clear to auscultation without rales, rhonchi or wheeze HEART: Regular rate and rhythm. No murmur heard. Normal peripheral pulses. ABDOMEN: Soft, nontender, nondistended, normal active bowel sounds. No masses. No rebound or guarding, No organomegaly. EXTREMITIES: No edema, normal strength with full range of motion. SKIN: Warm, dry, normal color without rash NEURO: Alert and oriented x3. CN 2-12 grossly intact. No focal deficits. PSYCH: Normal mood and affect. Neuro: Speech: No Abnormal speech present Course Reevaluation(s) Reevaluation #1: PAtient is resting comfortably. She was found to have slight decrease in potassium
[2022-08-13 07:39] LABS: Troponin I < 0.012 ng/mL (0.000-0.034)
[2022-08-13] MEDS: POTASSIUM CHLORIDE 20 MEQ TABLET 40 MEQ PO (07:48)
[2022-08-13] MEDS: MAGNESIUM OXIDE 400 MG TABLET PO (07:48)
== END 2022-08-13 07:57 | disposition home or self-care (01) ==
PROVIDERS: Emergency Provider General Practice; PCP Registered Nurse
DX: R00.2 Palpitations (principal); E87.6 Hypokalemia; F41.9 Anxiety disorder, unspecified; F32.9 Major depressive disorder, single episode, unspecified; E03.9 Hypothyroidism, unspecified
CPT/HCPCS: 36415; 71046; 80053; 81003; 83690; 83735; 84439; 84443; 84480; 84484; 85025; 85610; 85730; 93005; 96361; 96374; 99284; A9270; J1885; J7030

== ENCOUNTER 2022-08-26 12:03 | Outpatient (CLI) | payer OTHER, MEDICAID, SELFPAY ==
--- NOTE | ~2022-08-26 | XR_ITS ---
EXAMINATION: XR lumbar spine 2-3V DATE: 08/26/2022 12:31 INDICATION: Lumbar radiculopathy TECHNIQUE: Anteroposterior and lateral views of the lumbar spine, and cone-down lateral view of the l umbosacral junction were obtained. COMPARISON: MRI, 08/09/2021 FINDINGS: Bone alignment is normal. There is no fracture. There is mild loss of intervertebral disc s pace height at L5-S1. The vertebral body heights are maintained. There is mild facet joint osteoarthr itis of the lower lumbar spine. A tubal ligation clip is noted. Surgical clips in the right upper heriberto drant are likely from prior cholecystectomy. IMPRESSION: 1. Mild lumbar spondylosis without acute findings or significant interval change. Reviewed, dictated and finalized at location B. STACK DEVELOPER IMPRESSION: 1. Mild lumbar spondylosis without acute findings or significant interval padmini cisneros
--- NOTE | ~2022-08-26 | XR_ITS ---
EXAMINATION:XR cervical spine 4-5V DATE: 08/26/2022 12:31 INDICATION: Cervical radiculopathy TECHNIQUE: AP, lateral, lateral swimmers and odontoid views of the cervical spine are provided. COMPARISON: MRI, 08/09/2021 FINDINGS: Alignment is normal. The odontoid process is intact. No fracture is identified. Vertebral b kacie heights and disk spaces are normal. Prevertebral soft tissues are normal. There is unchanged mild /moderate facet and uncovertebral joint osteoarthritis of the lower cervical spine. IMPRESSION: 1. Mild cervical spondylosis without acute findings or significant interval change. Reviewed, dictated and finalized at location B. F LIBRARIAN WORK WITH BLIND IMPRESSION: 1. Mild cervical spondylosis without acute findings or significant interval griselda e.
== END 2022-08-26 12:04 | disposition home or self-care (01) ==
LOC: ANHIMG 12:09
PROVIDERS: PCP Registered Nurse; Visit Provider Pain Medicine Interventional Pain Medicine
DX: E66.9 Obesity, unspecified (principal); M25.559 Pain in unspecified hip; M47.22 Other spondylosis with radiculopathy, cervical region; M47.26 Other spondylosis with radiculopathy, lumbar region; M25.521 Pain in right elbow; M25.522 Pain in left elbow; F33.1 Major depressive disorder, recurrent, moderate
CPT/HCPCS: 72050; 72100

== ENCOUNTER 2022-11-03 00:03 | Emergency (ER) | payer OTHER, MEDICAID, SELFPAY ==
[2022-11-03 00:44] VITALS: BP 107/69; PULSE 86; RESP 18; TEMP 36.4; O2SAT 98
--- NOTE | 2022-11-03 01:35 | ED.DENTAL ---
HPI - Dental/Oral General Chief complaint: Dental/Oral Stated complaint: dental pain Time Seen by Provider: 11/03/22 01:27 History of Present Illness HPI Narrative: This is a 42-year-old female presents to the ED with chief complaint of dental pain x3 days. She reports she has a cracked tooth on the left upper side and feels that it might be infected. She has a regular dentist but states they are stupid and does not want to go to them. Denies fevers, chills, systemic symptoms. Denies any sore throat, trismus, drooling, jaw swelling. Teeth map: 1. Cracked tooth and caries Related Data Home Medications Medication Instructions Recorded Confirmed atorvastatin 20 mg tablet 20 mg PO DAILY 02/20/22 02/20/22 celecoxib 200 mg capsule cap 02/20/22 clonidine HCl 0.1 mg tablet tablet 02/20/22 duloxetine 60 mg capsule,delayed cap PO 02/20/22 release ergocalciferol (vitamin D2) 1,250 cap 02/20/22 mcg (50,000 unit) capsule levothyroxine 175 mcg tablet tablet 02/20/22 lisinopril 10 mg tablet tablet 02/20/22 metoprolol tartrate 50 mg tablet tablet 02/20/22 omeprazole 10 mg capsule,delayed mg 02/20/22 release omeprazole 40 mg capsule,delayed cap 02/20/22 release oxycodone-acetaminophen 7.5 mg-325 tablet 02/20/22 mg tablet pravastatin 20 mg tablet tablet 02/20/22 tizanidine 4 mg tablet tablet 02/20/22 Allergies Allergy/AdvReac Type Severity Reaction Status Date / Time vancomycin Allergy Intermediate Rash Verified 08/13/22 04:04 Latex, Natural Rubber Allergy Hives Verified 08/13/22 04:04 Review of Systems Review of Systems: CONSTITUTIONAL: Denies fever, chills, or sweats. EYES: Denies visual changes, redness, or discharge. ENT: Endorses dental pain. Denies rhinorrhea, congestion, sore throat, or otalgia. SKIN: Denies rash or itching. MUSCULOSKELETAL: Denies back pain, joint pain, or myalgia. NEUROLOGIC: Denies headache, numbness, dizziness, or weakness. PSYCHIATRIC: Denies anxiety or depression. [facility] Past Medical History Medical History Anxiety Depression Hypothyroid Ovarian cyst Surgical History Surgical History H/O: hysterectomy History of cholecystectomy Social History Social History Smoking status: Current every day smoker Alcohol intake: never Gender identity (if verbalized by the patient): Female Exam Narrative: GENERAL: Well-appearing, well-nourished, and in no acute distress. HEAD: Normocephalic, atraumatic. EYES: PERRLA and EOMI. ENT: Nares clear, no rhinorrhea or epistaxis. Mucous membranes moist. Oropharynx without tonsillar hypertrophy exudate or other lesions. Dental: Poor dentition throughout the mouth. Several missing teeth. Cracked tooth #13 with some gum swelling and discharge present. The floor of the mouth is intact and not swollen. No trismus or drooling. NECK: Supple. No adenopathy or masses. EXTREMITIES: Normal range of motion. No edema. SKIN: Warm, dry, no rash. NEURO: Alert and oriented x3. No focal deficits. PSYCH: Normal mood and affect. Course Vital Signs Vital signs: Vital Signs Temperature 97.6 F 11/03/22 00:44 Pulse Rate 86 11/03/22 00:44 Respiratory Rate 18 11/03/22 00:44 Blood Pressure 107/69 11/03/22 00:44 Pulse Oximetry 98 11/03/22 00:44 Temperature 97.6 F 11/03/22 00:44 Pulse Rate 86 11/03/22 00:44 Respiratory Rate 18 11/03/22 00:44 Blood Pressure 107/69 11/03/22 00:44 Pulse Oximetry 98 11/03/22 00:44 MDM - Dental/Oral MDM Narrative Medical decision making narrative: This is a 42-year-old female presents to the ED with chief complaint of left-sided upper dental pain onset x3 days. She has a dentist but states she does not want to go to them. She is requesting antibiotics. Vitals are stable. Afebrile at home an
[2022-11-03] MEDS: KETOROLAC (*BKC) 60 MG/2 ML VIAL IM (01:54)
[2022-11-03] MEDS: AMOXICILLIN 500 MG CAPSULE PO (01:54)
== END 2022-11-03 02:05 | disposition home or self-care (01) ==
LOC: ANHED 01:55
PROVIDERS: Emergency Provider Physician Assistant; PCP Registered Nurse
DX: K02.9 Dental caries, unspecified (principal); S02.5XXA Fracture of tooth (traumatic), initial encounter for closed fracture; F41.9 Anxiety disorder, unspecified; F32.A Depression, unspecified; E03.9 Hypothyroidism, unspecified; X58.XXXA Exposure to other specified factors, initial encounter
CPT/HCPCS: 96372; 99283; A9270; J1885

== ENCOUNTER 2023-01-02 17:46 | Emergency (ER) | payer OTHER, MEDICAID, SELFPAY ==
--- NOTE | ~2023-01-02 | US_ITS ---
EXAMINATION: US pelvic complete w TV DATE: 01/03/2023 02:55 INDICATION: Left lower quadrant abdominal pain. TECHNIQUE: Multiple transabdominal and transvaginal sonographic images of the pelvis were obtained. COMPARISON: CT abdomen and pelvis 01/03/2023 FINDINGS: TRANSABDOMINAL ULTRASOUND: The uterus is absent. There is no free fluid in the pelvis. TRANSVAGINAL ULTRASOUND: The right ovary measures 3.1 x 2.6 x 1.8 cm. The left ovary measures 7.1 x 5.0 x 4.9 cm. There are 5. 0 cm and 3.7 cm cysts abutting each other in the left ovary. Together the cysts measure 5.5 cm. There is normal vascular flow in the ovaries. IMPRESSION: 1. 5.5 cm bilocular cyst in left ovary, almost certainly benign. Pelvis ultrasound is recommended in 6 months. Reviewed, dictated and finalized at location A. IMPRESSION: 1. 5.5 cm bilocular cyst in left ovary, almost certainly benign. Pelvis ultraso und is recommended in 6 months.
--- NOTE | ~2023-01-02 | CT_ITS ---
EXAMINATION: CT abdomen pelvis w con DATE: 01/03/2023 00:45 INDICATION: Left lower quadrant abdominal pain. TECHNIQUE: Computed tomography (CT) of the abdomen and pelvis was performed with 100 mL Omnipaque 350 intravenous contrast. Automated exposure control and iterative reconstruction technique were employe d. The dose-length product was 1552.71 mGy-cm. COMPARISON: CT abdomen and pelvis 02/18/2021, pelvis ultrasound 01/03/23 FINDINGS: The visualized portions of the lung bases demonstrate mild atelectasis on the right. No ple ural effusion. The heart size is normal. No pericardial effusion. There is mild pectus excavatum. The re is a small sliding hiatal hernia. The liver is normal. There are changes of cholecystectomy. The s pleen, pancreas, adrenal glands, and kidneys are normal. There are no dilated loops of bowel. The heather endix is normal. There are no pathologically enlarged lymph nodes. There is no free intraperitoneal f luid. There are changes of hysterectomy. There is a bilocular cyst in left adnexa measuring 6.6 x 4.8 cm. There is mild lumbar spondylosis. There is a chronic left L5 pars defect. IMPRESSION: 1. 6.6 cm bilocular cyst in left adnexa, almost certainly benign. Pelvis ultrasound is recommended in 6 months. Reviewed, dictated and finalized at location A. IMPRESSION: 1. 6.6 cm bilocular cyst in left adnexa, almost certainly benign. Pelvis ultras ound is recommended in 6 months.
[2023-01-02 18:10] VITALS: BP 128/88; PULSE 118; RESP 20; TEMP 36.2; O2SAT 98
[2023-01-02 18:17] LABS: Basophils Absolute Auto 0.1 K/mm3 (0.0-0.1); Basophils Percent Auto 0.8 % (0.2-1.2); Eosinophils Absolute Auto 0.3 K/mm3 (0-0.3); Eosinophils Percent Auto 2.7 % (0-4.4); Hemoglobin 15.1 g/dL (12.0-15.0); Immature Granulocyte Absolute 0.04 K/mm3 (0.00-0.031); Immature Granulocyte Percent A 0.4 % (0-0.5); Lymphocytes Absolute Auto 3.19 K/mm3 (0.9-3.2); Lymphocytes Percent Auto 31.6 % (18.3-44.2); Mean Corpuscular HGB Conc 32.8 g/dl (32-36); Mean Corpuscular Hemoglobin 32.1 pg (26-34); Mean Corpuscular Volume 97.7 fl (80-100); Mean Platelet Volume 9.5 fl (7.4-10.4); Monocytes Absolute Auto 0.7 K/mm3 (0.1-0.6); Monocytes Percent Auto 7.3 % (2.6-8.5); Neutrophils Absolute Auto 5.8 K/mm3 (1.3-6.7); Neutrophils Percent Auto 57.2 % (45.5-73.1); Platelet Count Result 315 k/mm3 (150-375); Red Blood Count 4.71 M/mm3 (4.2-5.4); Red Cell Distribution Width 13.3 % (11.5-14.5); White Blood Count 10.1 K/mm3 (4.5-10.0)
[2023-01-02 18:26] LABS: Alanine Aminotransferase 60 U/L (6-35); Albumin Level 4.4 g/dL (3.5-5.1); Alkaline Phosphatase 100 U/L (38-126); Anion Gap 6 mmol/L (8-16); Aspartate Amino Transferase 55 U/L (14-36); Bilirubin,Total 0.6 mg/dL (0.2-1.3); Blood Urea Nitrogen 6 mg/dL (7-17); Carbon Dioxide 32 mmol/L (22-30); Chloride 98 mmol/L (98-107); Estimated CRCL calculation 124 ml/min; Estimated Glomerular Filt Rate > 60; Glucose 121 mg/dL (65-110); Lipase 69 U/L (23-300); Potassium 3.3 mmol/L (3.4-5.0); Sodium 136 mmol/L (137-145)
[2023-01-02 23:01] VITALS: BP 147/99; PULSE 102; RESP 20; O2SAT 97
[2023-01-02 23:05] VITALS: PULSE 93
[2023-01-02 23:27] LABS: Appearance Urine Cloudy (Clear); Bacteria Urine 4+ /hpf; Bilirubin Urine Negative (Negative); Blood Urine Negative (Negative); Color Urine Yellow (Yellow); Glucose Urine UA Negative (Negative); Ketones Urine Negative (Negative); Leukocyte Esterase Ur Trace LEU/UL (Negative); Need Manual Microscopic Reviewed; Nitrate Urine Positive (Negative); Non Pathogenic Casts 0-2; Protein Urine Negative (Negative); Squamous Epithelial Cell Urine Occasional /hpf (Few)
[2023-01-02 23:46] LABS: Add Urine Microscopic? YES
--- NOTE | 2023-01-03 00:18 | ED.GENADULT ---
HPI - General Adult General Chief complaint: Abdominal Pain Stated complaint: abd pain Time Seen by Provider: 01/02/23 23:03 History of Present Illness HPI narrative: This is a 42-year-old female presenting with 5 days of left lower quadrant pain. Pain describes as sharp pain that radiates to her left flank, 7 out 10 intensity and getting worse. She says this feels like when she had kidney infections in the past. Is worse with movement. Patient developed a fever of 101.2 several days ago. She is afebrile now. She has had some nausea but no vomiting. She also notes that she has some urinary pressure but no jagjit dysuria. She takes Percocet 7.5 mg twice daily for chronic pain. She has had a colonoscopy in the past and told she has diverticulosis. Related Data Home Medications Medication Instructions Recorded Confirmed atorvastatin 20 mg tablet 20 mg PO DAILY 02/20/22 02/20/22 celecoxib 200 mg capsule cap 02/20/22 clonidine HCl 0.1 mg tablet tablet 02/20/22 duloxetine 60 mg capsule,delayed cap PO 02/20/22 release ergocalciferol (vitamin D2) 1,250 cap 02/20/22 mcg (50,000 unit) capsule levothyroxine 175 mcg tablet tablet 02/20/22 lisinopril 10 mg tablet tablet 02/20/22 metoprolol tartrate 50 mg tablet tablet 02/20/22 omeprazole 10 mg capsule,delayed mg 02/20/22 release omeprazole 40 mg capsule,delayed cap 02/20/22 release oxycodone-acetaminophen 7.5 mg-325 tablet 02/20/22 mg tablet pravastatin 20 mg tablet tablet 02/20/22 tizanidine 4 mg tablet tablet 02/20/22 Allergies Allergy/AdvReac Type Severity Reaction Status Date / Time vancomycin Allergy Intermediate Rash Verified 08/13/22 04:04 Latex, Natural Rubber Allergy Hives Verified 08/13/22 04:04 [facility] Past Medical History Medical History Anxiety Depression Hypothyroid Ovarian cyst Surgical History Surgical History H/O: hysterectomy History of cholecystectomy Social History Social History Smoking status: Current every day smoker Alcohol intake: never Gender identity (if verbalized by the patient): Female Exam Narrative: APPEARANCE: No apparent distress. Head: atraumatic. EYES: EOMI, NOSE: Atraumatic NECK: Trachea midline RESPIRATORY: No increased rate of breathing CARDIOVASCULAR: RRR, ABDOMINAL: Abdomen is obese but she has tenderness in the left lower quadrant, there is the abdomen is soft with no guarding or rebound. L CVA/lowerback tenderness. MUSCULOSKELETAl: No obvious deformities NEURO: Alert. Moving 4/4 extremities SKIN:: Warm, dry. Normal color PSYCHIATRIC: Normal affect Course Vital Signs Vital signs: Vital Signs Temperature 97.2 F L 01/02/23 18:10 Pulse Rate 118 H 01/02/23 18:10 Respiratory Rate 20 01/02/23 18:10 Blood Pressure 128/88 01/02/23 18:10 Pulse Oximetry 98 01/02/23 18:10 Oxygen Delivery Room Air 01/02/23 18:10 Temperature 97.2 F L 01/02/23 18:10 Pulse Rate 78 01/03/23 03:01 Respiratory Rate 16 01/03/23 03:01 Blood Pressure 114/75 01/03/23 03:01 Pulse Oximetry 96 01/03/23 03:01 Oxygen Delivery Nasal Cannula 01/03/23 02:30 Oxygen Flow Rate 2 01/03/23 02:30 Medical Decision Making [facility] Narrative Medical decision making narrative: -Presentation: 42-year-old female presenting left-sided abdominal and flank pain. 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
[2023-01-03] MEDS: SODIUM CHLORIDE 0.9% IV 2,000 ML 999 ML IV CONT (00:46)
[2023-01-03] MEDS: ONDANSETRON INJ 4 MG/2 ML VIAL IV PUSH (00:46)
[2023-01-03] MEDS: HYDROmorphone HCL INJ (*CRX) 1 MG/ML SYR 0.5 MG IV PUSH ×2 (00:46→02:04)
[2023-01-03 01:31] VITALS: BP 109/78; PULSE 88; RESP 18; O2SAT 94
[2023-01-03] MEDS: KETOROLAC 15 MG/ML VIAL (*BKC) IV PUSH (02:08)
[2023-01-03 02:29] VITALS: O2SAT 88
[2023-01-03 02:30] VITALS: O2SAT 95
[2023-01-03 03:01] VITALS: BP 114/75; PULSE 78; RESP 16; O2SAT 96
[2023-01-03 04:42] VITALS: BP 126/95; PULSE 76; RESP 18; O2SAT 98
== END 2023-01-03 04:44 | disposition home or self-care (01) ==
PROVIDERS: Preventive Medicine Aerospace Medicine; Emergency Provider Emergency Medicine; PCP Registered Nurse
DX: N39.0 Urinary tract infection, site not specified (principal); R10.32 Left lower quadrant pain; N83.202 Unspecified ovarian cyst, left side; F41.9 Anxiety disorder, unspecified; F32.A Depression, unspecified; E03.9 Hypothyroidism, unspecified
CPT/HCPCS: 36415; 74177; 76830; 76856; 80053; 81001; 83690; 85025; 87077; 87086; 87186; 96361; 96374; 96375; 96376; 99284; J1170; J1885; J2405; J7030; Q9967